=== PATIENT | female | born 1955 | race Caucasian/White ===

== ENCOUNTER 2018-10-05 08:51 | Observation (INO) ==
[2018-10-05] MEDS ORDERED: DEXAMETHASONE **PF** INJ 10 MG/ML VIAL IV ONE (09:14)
[2018-10-05] MEDS ORDERED: MoRPHine SULFATE 10 MG/ML CARP/VIAL IV STA (09:14)
[2018-10-05] MEDS ORDERED: ONDANSETRON INJ 2 MG/ML 2 ML VIAL IV STA ×2 (09:14→11:15)
[2018-10-05] MEDS ORDERED: HYDROmorphone INJ 1 MG/ML SYRINGE IV STA (10:32)
--- NOTE | 2018-10-05 11:15 | Emergency Department Note ---
History of Present Illness General Chief complaint: Neuro Symptoms/Deficit Stated complaint: NEUROPATHY, NECK PAIN Time Seen by Provider: 10/05/18 08:59 History of Present Illness Maximum Pain Intensity: 10 This 63-year-old female presents to the ER with chief complaint of worsening neuropathy of her arms and legs. Patient states that she had a steroid injection of Kenalog into her cervical spine 1 year ago and since that time has had peripheral neuropathy. The patient has been seen at multiple facilities for her neuropathy. She started a Dr. Jackson and then went to [facility], [place] and [place]. She has been placed on multiple medications for the neuropathy. The patient is currently on gabapentin 1200 mg daily oxcarbazine and oxycodone although she has not taken any oxycodone today. She did take one oxycodone yesterday. The patient is currently followed by Dr. Altamirano, [facility] who prescribes her oxycodone and goes to [facility] for trigger point dry needling. The patient is here mainly for pain control. The patient has had imaging done of both her cervical spine and lumbar spine within the last year. Home Medications Home Medications Medication Instructions Recorded Confirmed Type cetirizine [Zyrtec] 10 mg PO QAM 11/24/17 10/05/18 History bisacodyl 5 mg tablet 10 mg PO PM tab 06/13/18 10/05/18 History cyclobenzaprine 10 mg tablet 10 mg PO DIRECTED PRN 06/13/18 10/05/18 History docusate sodium 100 mg capsule 200 mg PO PM cap 06/13/18 10/05/18 History meloxicam 15 mg tablet 15 mg PO PM 06/13/18 10/05/18 History metoprolol succinate ER 50 mg 25 mg PO PM 06/13/18 10/05/18 History tablet,extended release 24 hr oxycodone 5 mg capsule 5 mg PO BID PRN cap 06/13/18 10/05/18 History zolpidem 5 mg tablet 5 mg PO HS PRN tab 06/13/18 10/05/18 History cholecalciferol (vitamin D3) 2,000 unit PO QAM 10/05/18 10/05/18 History [Vitamin D3] gabapentin 300 mg PO QID 10/05/18 10/05/18 History hydrochlorothiazide 12.5 mg PO DIRECTED PRN 10/05/18 10/05/18 History lorazepam 0.5 mg PO TID PRN 10/05/18 10/05/18 History oxcarbazepine 150 mg PO QAM 10/05/18 10/05/18 History tramadol 50 mg PO DIRECTED PRN 10/05/18 10/05/18 History Allergies Allergy/AdvReac Type Severity Reaction Status Date / Time cephalexin Allergy Mild hives Verified 10/05/18 09:20 Penicillins Allergy Unknown Verified 10/05/18 09:20 Sulfa (Sulfonamide Allergy Unknown Verified 10/05/18 09:20 Antibiotics) sulfamethoxazole Allergy Unknown Verified 10/05/18 09:20 Past Med/Surg History Medical History Cervical radiculitis Cervicalgia GERD (gastroesophageal reflux disease) Lumbago Peripheral neuropathy Surgical History H/O: hysterectomy S/P shoulder surgery S/P tonsillectomy and adenoidectomy Social History Feels Safe at Home: Yes Smoking Status: Never smoker Review of Systems A total of 6 systems reviewed and were otherwise negative Physical Exam Vital Signs Vital Signs - 24 hr 10/05/18 08:54 10/05/18 10:51 Temperature 36.8 C Temperature Source Oral Sepsis Recent Fever Within 48 Hours No Sepsis New/Unexplained Change in Mental Status No Sepsis Action Taken by Nursing No Action Required Pulse Rate 87 Pulse Rate [Finger] 72 Pulse Rhythm [Finger] Regular Pulse Strength [Finger] Normal Respiratory Rate 20 16 Respiratory Effort / Characteristics Non-Labored Spontaneous Respiratory Depth Normal Respiratory Pattern Regular Blood Pressure 112/76 Blood Pressure [Right Arm] 119/98 Blood Pressure Mean 88 Blood Pressure Mean [Right Arm] 105 Blood Pressure Position [Right Arm] Lying Pulse Oximetry 100 99 Oxygen Delivery Method Room Air Room Air GENERAL: 63-year-old female appears uncomfortable secondary to pain. MENTAL Status: Alert and oriented x3. NECK: Supple, no lymphadenopathy noted LUNGS: Clear to auscultation without wheezes rales or rhonchi. CARDIAC: Regular rate and rhythm without murmur. CERVICAL SPINE: Patient is tender to palpation over the spinous processes in the paravertebral regions bilaterally. The patient has full range of motion of the cervical spine. Perforator Loader strength is 5 out of 5 and symmetrical. LUMBAR SPINE: No gross bony deformity noted. No erythema or edema noted. The patient is nontender to palpation over the spinous processes in the paravert ebral region. Full range of motion. Bilateral patellar and Achilles reflexes are 2+. LOWER EXTREMITIES: No cyanosis or edema noted. Course Administered Medications Discontinued Medications Dexamethasone Sodium Phosphate (Decadron Pf) 10 mg IV NOW ONE Stop: 10/05/18 09:15 Last Admin: 10/05/18 09:39 Dose: 10 mg Documented by: [id number] Hydromorphone HCl (Dilaudid) 1 mg IV NOW STA Stop: 10/05/18 10:33 Last Admin: 10/05/18 11:10 Dose: 1 mg Documented by: [id number] Morphine Sulfate (Morphine Sulfate) 6 mg IV NOW STA Stop: 10/05/18 09:15 Last Admin: 10/05/18 09:39 Dose: 6 mg Documented by: [id number] Ondansetron HCl (Zofran) 4 mg IV NOW STA Stop: 10/05/18 09:15 Last Admin: 10/05/18 09:39 Dose: 4 mg Documented by: [id number] Ondansetron HCl (Zofran) 4 mg IV NOW STA Stop: 10/05/18 11:16 Last Admin: 10/05/18 11:19 Dose: 4 mg Documented by: [id number] Medical Decision Making Differential Diagnosis Peripheral neuropathy Medical Records Attestation: I reviewed the patient's medical records. Home Medications Current Medication List: was personally reviewed by me Blood Pressure Blood Pressure Findings: Normal blood pressure MDM Narrative The patient was evaluated. I do not feel that the patient needs any imaging studies performed. She has seen all specialist for her problems. She is mainly here for pain control therefore IV access was obtained and she was given morphine 6 mg IV and Zofran 4 mg IV push for associated nausea. The patient was reevaluated and was still in pain therefore she was given Dilaudid 1 mg IV and Zofran 4 mg IV push for associated nausea. The patient was reevaluated once again and was still stating she did not get any pain relief. Patient's case was discussed with Dr. Longoria who agree with treatment plan. [facility] for [facility]. Impression & Plan Neuropathy, Intractable pain Discharge Plan Visit Data Chief Complaint: Neuro Symptoms/Deficit Stated Complaint: NEUROPATHY, NECK PAIN ED Provider: Hayden Longoria ED Midlevel Provider: Cassandra Ray Discharge Problem: Neuropathy, Intractable pain Patient Disposition: Being Evaluated by Hospitalist Condition: Good Forms Stand Alone Forms: My [facility] Prescriptions Prescriptions: No Action metoprolol succinate [Toprol XL] 50 mg tablet extended release 24 hr 25 mg PO PM RF: 0 oxycodone 5 mg capsule 5 mg PO BID PRN (Reason: Pain) RF: 0 zolpidem [Ambien] 5 mg tablet 5 mg PO HS PRN (Reason: Sleep) RF: 0 meloxicam 15 mg tablet 15 mg PO PM RF: 0 docusate sodium [Colace] 100 mg capsule 200 mg PO PM RF: 0 Correctol 5 mg tablet 10 mg PO PM RF: 0 cetirizine [Zyrtec] 10 mg Tablet 10 mg PO QAM RF: 0 cyclobenzaprine 10 mg tablet 10 mg PO DIRECTED PRN (Reason: flex) RF: 0 oxcarbazepine 150 mg tablet 150 mg PO QAM RF: 0 tramadol 50 mg tablet 50 mg PO DIRECTED PRN (Reason: Pain) RF: 0 lorazepam 0.5 mg tablet 0.5 mg PO TID PRN (Reason: Anxiety) RF: 0 hydrochlorothiazide 12.5 mg capsule 12.5 mg PO DIRECTED PRN (Reason: swelling) RF: 0 gabapentin 300 mg capsule 300 mg PO QID RF: 0 cholecalciferol (vitamin D3) [Vitamin D3] 2,000 unit Tablet 2,000 unit PO QAM RF: 0 Referrals Referrals: Saroj Rai DO [Primary Care Provider] -
--- NOTE | 2018-10-05 14:20 | History & Physical Report ---
Date of Service October 05, 2018 Assessment & Plan (1) Intractable pain: (2) Neuropathy: (3) Chronic pain: Pt with hx chronic neck and back pain for greater than 20 years with hx pain and paresthesias to bilateral upper and lower extremities x 1 year presented to ER with c/o increased pain. Pt reports gradual worsening of symptoms over past several months and reports increased worsening today. Denies taking her home pain medications today prior to arrival. She has had extensive workup and multiple evaluations with neurologists in [facility], [facility] and [facility]. Pt started on Trileptal on 09/13/18 by [facility]. Diagnosed with small fiber neuropathy H/O MRI C-SPINE 06/30:C ervical degenerative changes are similar in distribution to the prior study, again appearing most pronounced at C4-5 through C6-7, where there is mild spinal canal stenosis and varying degrees of [id number] foraminal narrowing MRI L SPINE 09/18/18:Mild degenerative changes at L4-5 and L5-S1 with mild narrowing of each lateral recess at L5-S1 and mild bilateral facet arthropathy at these levels. No evidence for any canal narrowing or foraminal narrowing. Severe disc disease at L4-5. MRI THORACIC SPINE on 09/18/18: Mild degenerative changes at L4-5 and L5-S1 with mild narrowing of each lateral recess at L5-S1 and mild bilateral facet arthropathy at these levels. No evidence for any canal narrowing or foraminal narrowing. Severe disc disease at L4-5. -In ER was given Morphine 6mg IV, Dilaudid 1mg IV, Zofran, Decadron 10mg IV with reported slightly decreased pain to hands but continued pain to BLE -Admitted for pain control -Continue Gabapentin, Trileptal, Mobic -Oxycodone, Morphine prn pain -PT/OT eval -Pain management consult -Continue outpatient neurology consult, consider neurology consult inpatient if worsening (4) Anxiety and depression: (5) Insomnia: Pt recently prescribed effexor however pt did not start -Hold ativan currently with pain medication use -Need to caution ambien use with other pain medication use (6) Palpitations: Reported chronic intermittent palpitations Denies any currently -Continue metoprolol DVT Prophylaxis -SCDs Follows with Dr Saroj Rai for routine care Pt was seen and care coordinated with Dr Rodrigues. See addendum History of Present Illness Chief Complaint: Pain Primary Care Provider: Saroj Rai DO Pt is 63 y/o F with PMH anxiety, depression, insomnia, palpitations, chronic pain, small fiber neuropathy presented to ER with complaint of increased pain. Patient with history of chronic neck and back pain for over 20 years. She reports history of injection to cervical spine 09/2017 and patient reports that since has had pain and numbness burning sensation, initially to bilateral hands and feet which has progressed to entire bilateral upper extremities and lower extremities and numbness of tongue and lips. Patient has been seen by multiple specialists at [facility], [facility], [facility] and most recently [facility] on 09/13/2018 who started patient on Trileptal and did not believe that there is a correlation between the cervical spine injection and patient's current symptoms per outpatient note. She has followed up with pain management and reports is currently following up at [facility] in [place]. Following up with physical therapy also has received acupuncture without relief. Has been on multiple medications. Stopped Elavil on 09/23/18 secondary to dry mouth and didn't feel it was effective. PCP suggested starting Effexor for moods on 09/25/18 however pt did not start. She reports alternating Tramadol and oxycodone daily for pain with limited relief. Patient has had extensive work-up including labs, MRI cervical & lumbar spine, nerve conduction studies and skin biopsies. Biopsy findings were consistent with small fiber neuropathy. Followed up with Dr. 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 Patient reports over the last several months has had increasing pain and describes it from her head to her feet excluding her chest and abdomen. Describes sensation as burning type shocks and reports intermittent left arm weakness and dropping objects. Patient states he has had a couple of falls last being 1 week ago. Pt reports intermittent palpitations and is on metoprolol with some improvement. Also reports intermittent tinnitus and dizziness that she does not feel has worsened. Reports hx stress and increased with her mother passing away recently. reports bilateral feet edema after standing all day and has HCTZ to use as needed, however states hasn't used for awhile secondary to no significant edema. Denies fever/chills, diaphoresis, N/V/D/C, GIVENS, syncope, vision changes, CP, SOB, orthopnea, cough, sore throat, choking, otalgia, rhinorrhea, abdominal pain, rashes, urinary symptoms. Hx MRI C-SPINE 06/30: IMPRESSION Cervical degenerative changes are similar in distribution to the prior study, again appearing most pronounced at C4-5 through C6-7, where there is mild spinal canal stenosis and varying degrees of [id number] foraminal narrowing, as detailed. MRI L SPINE 09/18/18: IMPRESSION 1. Mild degenerative changes at L4-5 and L5-S1 with mild narrowing of each lateral recess at L5-S1 and mild bilateral facet arthropathy at these levels. No evidence for any canal narrowing or foraminal narrowing. 2. Severe disc disease at L4-5. 09/18/18 MRI THORACIC SPINE: IMPRESSION 1. Mild degenerative changes at L4-5 and L5-S1 with mild narrowing of each lateral recess at L5-S1 and mild bilateral facet arthropathy at these levels. No evidence for any canal narrowing or foraminal narrowing. 2. Severe disc disease at L4-5. Today In ER pt given Morphine, Dilaudid, Zofran, Decadron and admitted secondary to intractable pain. Allergies Allergy/AdvReac Type Severity Reaction Status Date / Time cephalexin Allergy Mild hives Verified 10/05/18 09:20 Penicillins Allergy Unknown Verified 10/05/18 09:20 Sulfa (Sulfonamide Allergy Unknown Verified 10/05/18 09:20 Antibiotics) sulfamethoxazole Allergy Unknown Verified 10/05/18 09:20 Home Medications Home Medications Medication Instructions Recorded Confirmed Type cetirizine [Zyrtec] 10 mg PO QAM 11/24/17 10/05/18 History bisacodyl 5 mg tablet 10 mg PO PM PRN tab 06/13/18 10/05/18 History cyclobenzaprine 10 mg tablet 10 mg PO BID PRN 06/13/18 10/05/18 History docusate sodium 100 mg capsule 200 mg PO PM cap 06/13/18 10/05/18 History meloxicam 15 mg tablet 15 mg PO PM 06/13/18 10/05/18 History metoprolol succinate ER 50 mg 25 mg PO PM 06/13/18 10/05/18 History tablet,extended release 24 hr oxycodone 5 mg capsule 5 mg PO BID PRN cap 06/13/18 10/05/18 History zolpidem 5 mg tablet 5 - 10 mg PO HS PRN tab 06/13/18 10/05/18 History cholecalciferol (vitamin D3) 50,000 unit PO UD 10/05/18 10/05/18 History gabapentin 300 mg PO QID 10/05/18 10/05/18 History hydrochlorothiazide 12.5 mg PO DAILY PRN 10/05/18 10/05/18 History lorazepam 0.5 mg PO DAILY PRN 10/05/18 10/05/18 History oxcarbazepine 150 mg PO QAM 10/05/18 10/05/18 History tramadol 50 mg PO DAILY PRN 10/05/18 10/05/18 History Past Med/Surg History Medical History Palpitations (Chronic) Insomnia (Chronic) Anxiety and depression (Chronic) Neuropathy (Chronic) Cervical radiculitis Cervicalgia (Chronic) GERD (gastroesophageal reflux disease) (Chronic) Lumbago (Chronic) Peripheral neuropathy Surgical History H/O wisdom tooth extraction (Chronic) H/O: hysterectomy (Chronic) S/P shoulder surgery (Chronic) S/P tonsillectomy and adenoidectomy (Chronic) Family History Father Bladder cancer Stroke Brother Coronary heart disease Mother Stroke Other Hypertension Social History Preferred Language: Polish Communication Ability: Effective Subsorter Required: No Beliefs That Will Affect Care: Restoration Restoration Beliefs: Religious Current Living Situation: Spouse Other Information That Helps Us Care for You: No Feels Safe at Home: Yes Safety Concerns: Feels Safe At This Time Smoking Status: Never smoker Do You Dip or Chew Tobacco: No Hx Alcohol Use: No Hx Substance Use: No Review of Systems Review of Systems: All systems reviewed & are unremarkable except as noted in HPI & below Physical Exam Physical Exam: General: no acute distress, lying in bed, WDWN Head: normocephalic, atraumatic Eyes: PERRL, EOM's intact, conjunctiva non-injected, anicteric ENT: normal inspection external ears, nose, mucous membranes moist Neck: supple, trachea midline, non-tender, ROM intact Lungs: clear, no respiratory distress, no wheezing/rhonchi/rales CV: RRR, no murmur, no pretibial edema Abd: normal BS, soft, non-tender Ext: no cyanosis, no calf tenderness, strength BUE and BLE 5/5 intact, sensation to light touch intact, brisk capillary refill, distal pulses intact Neuro: A&O x 3, CN II-XII grossly intact, no focal deficits noted, normal affect Skin: warm, dry Results & Data Vital Signs (Past 12 Hours) Vital Signs Temp Pulse Pulse Resp BP BP Pulse Ox 10/05/18 13:21 90 17 104/77 99 10/05/18 10:51 72 16 119/98 99 10/05/18 08:54 36.8 C 87 20 112/76 100 Laboratory Results Short CBC 10/05/18 Range/Units 14:50 WBC 6.64 (4.8-10.8) K/uL Hgb 12.5 (12.0-16.0) g/dL Hct 37.8 (37-47) % Plt Count 186 (130-400) K/uL BMP 10/05/18 14:50 Sodium 142 Potassium 3.8 Chloride 106 Carbon Dioxide 29 BUN 19 H Creatinine 0.93 Glucose 134 H Calcium 9.5 Liver Function 10/05/18 Range/Units 14:50 Total Bilirubin 0.2 (0.2-1) mg/dl AST 26 (15-37) U/L ALT 28 (12-78) U/L Alkaline Phosphatase 121 H (45-117) U/L Albumin 3.9 (3.4-5.0) gm/dl Supervising Physician Co-Signing Physician Notes I saw this patient with the physician export sales assistant, I participated in the history, physical, review of systems, and physical exam. I reviewed the medications with the patient and the physician export sales assistant and helped reconcile the medications. I helped take a detailed family and social history as well. I formulated the assessment and plan personally with the physician export sales assistant and went over it with the patient. ROS-No Headache, No Visual Changes, No Nausea, No Vomiting, No Fever, No Chills, No Neck Pain or Stiffness, No Chest Pain, No Palpitations, No SOB, No CASTILLO, No Cough, No Sputum, No Wheezing, No Abdominal Pain, No Diarrhea, No Hematemesis, No Hemoptysis, No Unexpected Weight Loss, No Flank pain, No Melena, No Hematochezia, No Frequency, No Urgency, No Burning, No Hematuria, No Rashes, No Diaphoresis. Appetite is Normal, c/o aupper and lower pain and tingling, Foot pain, Neck pain, upper back and arm pain Physical Exam Gen-AAO x 3, NAD, Afebrile, pleasant Head-NCAT, EOMI, PERRLA, Anicteric Sclera, No Posterior Pharyngeal Erythema Neck-Supple, No JVD, No Thyromegaly, No Masses, No LAD, No Bruits Lungs-Clear to Auscultation Bilaterally, No Rales, No Rhonchi, No Wheezing, No Crepitus Chest-No S4, +S1, +S2, No S3, No Murmurs, No Rubs, No Gallops, No Ectopy Abdomen-Soft, Bowel Sounds Present, Non Tender, Non Distended, No Hepatomegaly, No Splenomegaly, No Palpable Masses, No Rebound, No Rigidity, No Guarding Musculoskeletal-Full Range of Motion Bilaterally, No CVAT Extremities-No Cyanosis, No Clubbing, No Edema Nuero-Cranial Nerves II-XII grossly intact, Motor WNL, DTRs WNL, Strength WNL, Non Focal Psych-Anxious
[2018-10-05] MEDS ORDERED: PROCHLORPERAZINE 10 MG in SYRINGE 8 ML IV ONE (14:28)
[2018-10-05 15:02] LABS: Basophils # (auto) 0.01 K/uL (0-0.2); Basophils % (auto) 0.2 %; Hematocrit (blood only) 37.8 % (37-47); Hemoglobin 12.5 g/dL (12.0-16.0); Immature Granulocytes # (auto) 0.01 K/uL (0.00-0.02); Immature Granulocytes % (auto) 0.2 %; Lymphocytes # (auto) 0.55 K/uL (1.2-3.4); Lymphocytes % (auto) 8.3 %; Mean Corpuscular Hgb Conc 33.1 g/dL (32-36); Mean Corpuscular Volume 91.5 fL (80-100); Mean Platelet Volume 12.5 fL (7.4-10.4); Monocytes # (auto) 0.04 K/uL (0.11-0.59); Monocytes % (auto) 0.6 %; Neutrophils # (auto) 6.03 K/uL (1.4-6.5); Neutrophils % (auto) 90.7 %; Platelet Count 186 K/uL (130-400); RDW Coefficient of Variation 13.2 % (11.5-14.5); RDW Standard Deviation 44.3 fL (36.4-46.3); Red Blood Count 4.13 M/uL (4.2-5.4); White Blood Count 6.64 K/uL (4.8-10.8)
[2018-10-05 15:23] LABS: Albumin Globulin Ratio 1.1 (0.9-2); Albumin Level 3.9 gm/dl (3.4-5.0); BUN Creatinine Ratio 20.4 (10-20); Bilirubin,Total 0.2 mg/dl (0.2-1); Calcium 9.5 mg/dl (8.5-10.1); Creatinine Clr Calc Pharmacy 53.8 ml/min; Est GFR (African American) 76.3; Est GFR (Non-African American) 65.9; Globulin 3.5 gm/dl (2.5-4.0); Potassium 3.8 mmol/L (3.5-5.1); Total Protein 7.4 gm/dl (6.4-8.2)
[2018-10-05] MEDS ORDERED: ZOLPIDEM TARTRATE 5 MG TAB PO PRN (16:12)
[2018-10-05] MEDS ORDERED: CYCLOBENZAPRINE HCL 10 MG TAB PO PRN (16:12)
[2018-10-05] MEDS ORDERED: ACETAMINOPHEN 325 MG TAB PO PRN (16:12)
[2018-10-05] MEDS ORDERED: OXYCODONE HCL IR 5 MG TAB (IMMEDIATE RELEASE) PO PRN (16:12)
[2018-10-05] MEDS ORDERED: ONDANSETRON INJ 2 MG/ML 2 ML VIAL IV PRN (16:12)
[2018-10-05] MEDS ORDERED: MoRPHine SULFATE 4 MG/ML 1 ML CARP\\VIAL IV PRN (16:12)
[2018-10-05] MEDS ORDERED: GABAPENTIN 300 MG CAP PO SCH (17:00)
--- NOTE | 2018-10-05 18:00 | Discharge Summary ---
Date of Service October 05, 2018 Admission HPI Per Admitting Provider Pt is 63 y/o F with PMH anxiety, depression, insomnia, palpitations, chronic pain, small fiber neuropathy presented to ER with complaint of increased pain. Patient with history of chronic neck and back pain for over 20 years. She reports history of injection to cervical spine 09/2017 and patient reports that since has had pain and numbness burning sensation, initially to bilateral hands and feet which has progressed to entire bilateral upper extremities and lower extremities and numbness of tongue and lips. Patient has been seen by multiple specialists at [facility], [facility], [facility] and most recently [facility] on 09/13/2018 who started patient on Trileptal and did not believe that there is a correlation between the cervical spine injection and patient's current symptoms per outpatient note. She has followed up with pain management and reports is currently following up at [facility] in [place]. Following up with physical therapy also has received acupuncture without relief. Has been on multiple medications. Stopped Elavil on 09/23/18 secondary to dry mouth and didn't feel it was effective. PCP suggested starting Effexor for moods on 09/25/18 however pt did not start. She reports alternating Tramadol and oxycodone daily for pain with limited relief. Patient has had extensive work-up including labs, MRI cervical & lumbar spine, nerve conduction studies and skin biopsies. Biopsy findings were consistent with small fiber neuropathy. Followed up with Dr. 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 Patient reports over the last several months has had increasing pain and describes it from her head to her feet excluding her chest and abdomen. Describes sensation as burning type shocks and reports intermittent left arm weakness and dropping objects. Patient states he has had a couple of falls last being 1 week ago. Pt reports intermittent palpitations and is on metoprolol with some improvement. Also reports intermittent tinnitus and dizziness that she does not feel has worsened. Reports hx stress and increased with her mother passing away recently. reports bilateral feet edema after standing all day and has HCTZ to use as needed, however states hasn't used for awhile secondary to no significant edema. Denies fever/chills, diaphoresis, N/V/D/C, GIVENS, syncope, vision changes, CP, SOB, orthopnea, cough, sore throat, choking, otalgia, rhinorrhea, abdominal pain, rashes, urinary symptoms. Hx MRI C-SPINE 06/30: IMPRESSION Cervical degenerative changes are similar in distribution to the prior study, again appearing most pronounced at C4-5 through C6-7, where there is mild spinal canal stenosis and varying degrees of [id number] foraminal narrowing, as detailed. MRI L SPINE 09/18/18: IMPRESSION 1. Mild degenerative changes at L4-5 and L5-S1 with mild narrowing of each lateral recess at L5-S1 and mild bilateral facet arthropathy at these levels. No evidence for any canal narrowing or foraminal narrowing. 2. Severe disc disease at L4-5. 09/18/18 MRI THORACIC SPINE: IMPRESSION 1. Mild degenerative changes at L4-5 and L5-S1 with mild narrowing of each lateral recess at L5-S1 and mild bilateral facet arthropathy at these levels. No evidence for any canal narrowing or foraminal narrowing. 2. Severe disc disease at L4-5. Today In ER pt given Morphine, Dilaudid, Zofran, Decadron and admitted secondary to intractable pain. Admission Exam Per Admitting Provider Physical Exam Gen-AAO x 3, NAD, Afebrile Head-NCAT, EOMI, PERRLA, Anicteric Sclera, No Posterior Pharyngeal Erythema Neck-Supple, No JVD, No Thyromegaly, No Masses, No LAD, No Bruits Lungs-Clear to Auscultation Bilaterally, No Rales, No Rhonchi, No Wheezing, No Crepitus Chest-No S4, +S1, +S2, No S3, No Murmurs, No Rubs, No Gallops, No Ectopy Abdomen-Soft, Bowel Sounds Present, Non Tender, Non Distended, No Hepatomegaly, No Splenomegaly, No Palpable Masses, No Rebound, No Rigidity, No Guarding Musculoskeletal-Full Range of Motion Bilaterally, No CVAT Extremities-No Cyanosis, No Clubbing, No Edema Nuero-Cranial Nerves II-XII grossly intact, Motor WNL, DTRs WNL, Strength WNL, Non Focal Psych-Normal Mood Principal Diagnosis Neuropathic pain Discharge Exam Physical Exam Gen-AAO x 3, NAD, Afebrile Head-NCAT, EOMI, PERRLA, Anicteric Sclera, No Posterior Pharyngeal Erythema Neck-Supple, No JVD, No Thyromegaly, No Masses, No LAD, No Bruits Lungs-Clear to Auscultation Bilaterally, No Rales, No Rhonchi, No Wheezing, No Crepitus Chest-No S4, +S1, +S2, No S3, No Murmurs, No Rubs, No Gallops, No Ectopy Abdomen-Soft, Bowel Sounds Present, Non Tender, Non Distended, No Hepatomegaly, No Splenomegaly, No Palpable Masses, No Rebound, No Rigidity, No Guarding Musculoskeletal-Full Range of Motion Bilaterally, No CVAT Extremities-No Cyanosis, No Clubbing, No Edema Nuero-Cranial Nerves II-XII grossly intact, Motor WNL, DTRs WNL, Strength WNL, Non Focal Psych-Normal Mood Discharge Data Allergies Allergy/AdvReac Type Severity Reaction Status Date / Time cephalexin Allergy Mild hives Verified 10/05/18 09:20 Penicillins Allergy Unknown Verified 10/05/18 09:20 Sulfa (Sulfonamide Allergy Unknown Verified 10/05/18 09:20 Antibiotics) sulfamethoxazole Allergy Unknown Verified 10/05/18 09:20 Consultations 10/05/18 12:51 ED Decision to Admit Stat 10/05/18 16:12 Consult Case Management - Discharge Planning Routine Consult Pain Management Routine Current Diagnoses Major depressive disorder, single episode, unspecified (10/05/18) Anxiety disorder, unspecified (10/05/18) Insomnia, unspecified (10/05/18) Polyneuropathy, unspecified (10/05/18) Other chronic pain (10/05/18) Palpitations (10/05/18) Pain, unspecified (10/05/18) Allergies cephalexin Allergy (Mild, Verified 10/05/18 09:20) hives Penicillins Allergy (Unknown, Verified 10/05/18 09:20) Sulfa (Sulfonamide Antibiotics) Allergy (Unknown, Verified 10/05/18 09:20) sulfamethoxazole Allergy (Unknown, Verified 10/05/18 09:20) Height/Weight/Isolation Height 5 ft 1 in Weight 64.1 kg Chemistry 10/05/18 14:50 Sodium 142 Potassium 3.8 Chloride 106 Carbon Dioxide 29 Anion Gap 7.0 BUN 19 H Creatinine 0.93 Glucose 134 H Hospital Course (1) Intractable pain: (2) Neuropathy: (3) Chronic pain: Pt with hx chronic neck and back pain for greater than 20 years with hx pain and paresthesias to bilateral upper and lower extremities x 1 year presented to ER with c/o increased pain. Pt reports gradual worsening of symptoms over past several months and reports increased worsening today. Denies taking her home pain medications today prior to arrival. She has had extensive workup and multiple evaluations with neurologists in [facility], [facility] and [facility]. Pt started on Trileptal on 09/13/18 by [facility]. Diagnosed with small fiber neuropathy H/O MRI C-SPINE 06/30:C ervical degenerative changes are similar in distribution to the prior study, again appearing most pronounced at C4-5 through C6-7, where there is mild spinal canal stenosis and varying degrees of [id number] foraminal narrowing MRI L SPINE 09/18/18:Mild degenerative changes at L4-5 and L5-S1 with mild narrowing of each lateral recess at L5-S1 and mild bilateral facet arthropathy at these levels. No evidence for any canal narrowing or foraminal narrowing. Severe disc disease at L4-5. MRI THORACIC SPINE on 09/18/18: Mild degenerative changes at L4-5 and L5-S1 with mild narrowing of each lateral recess at L5-S1 and mild bilateral facet arthropathy at these levels. No evidence for any canal narrowing or foraminal narrowing. Severe disc disease at L4-5. -In ER was given Morphine 6mg IV, Dilaudid 1mg IV, Zofran, Decadron 10mg IV with reported slightly decreased pain to hands but continued pain to BLE -Admitted for pain control -Continue Gabapentin, Trileptal, Mobic -Oxycodone, Morphine prn pain -PT/OT eval -Pain management consult -Continue outpatient neurology consult, consider neurology consult inpatient if worsening (4) Anxiety and depression: (5) Insomnia: Pt recently prescribed effexor however pt did not start -Hold ativan currently with pain medication use -Need to caution ambien use with other pain medication use (6) Palpitations: Reported chronic intermittent palpitations Denies any currently -Continue metoprolol DVT Prophylaxis -SCDs Follows with Dr Saroj Rai for routine care Pt was seen and care coordinated with Dr Rodrigues. See addendum Total Time Total Time Spent Total Time Spent (In Minutes): 36 mins Total Time Includes: Examination of the Patient, Discharge Planning, Medication Reconciliation and Communication With Other Providers Discharge Plan Discharge Items Patient Disposition: Home - Self-Care Reason For Visit: INTRACTABLE PAIN Discharge Diagnosis: Neuropathy, Pain Condition: Good Discharge Goals: Decrease discomfort and Improve function Activity: Resume your previous activity Activity Comment: As tolerated Non-emergency contact: Primary Care Provider Call non-emergency contact if: your symptoms worsen and you have a fever Follow-up/Referrals: Saroj Rai DO [Primary Care Provider] - Diet: Regular Addtl Provider Instructions: Follow up with pain management, Follow up with PCP Can resume home medications Prescriptions: Continued metoprolol succinate [Toprol XL] 50 mg tablet extended release 24 hr 25 mg PO PM RF: 0 oxycodone 5 mg capsule 5 mg PO BID PRN (Reason: Pain) RF: 0 zolpidem [Ambien] 5 mg tablet 5 - 10 mg PO HS PRN (Reason: Insomnia) RF: 0 meloxicam 15 mg tablet 15 mg PO PM RF: 0 docusate sodium [Colace] 100 mg capsule 200 mg PO PM RF: 0 Correctol 5 mg tablet 10 mg PO PM PRN (Reason: Constipation) RF: 0 cetirizine [Zyrtec] 10 mg Tablet 10 mg PO QAM RF: 0 cyclobenzaprine 10 mg tablet 10 mg PO BID PRN (Reason: Muscle Spasm) RF: 0 oxcarbazepine 150 mg tablet 150 mg PO QAM RF: 0 tramadol 50 mg tablet 50 mg PO DAILY PRN (Reason: Pain) RF: 0 lorazepam 0.5 mg tablet 0.5 mg PO DAILY PRN (Reason: Anxiety) RF: 0 hydrochlorothiazide 12.5 mg capsule 12.5 mg PO DAILY PRN (Reason: swelling) RF: 0 gabapentin 300 mg capsule 300 mg PO QID RF: 0 cholecalciferol (vitamin D3) 50,000 unit Capsule 50,000 unit PO UD RF: 0 Stand-Alone Forms: [facility] Discharge Orders: Discharge Order (Routine); Ordered 10/05/18 Ordered By: Sapna Chavez Admission Data Admit Date/Time: 10/05/18 14:15 Attending Provider: Karina Abdi Admit Provider: Henry Rodrigues Primary Care Provider: Saroj Rai Other Providers: Henry Rodrigues ; Petar Cha Service: Telemetry Medical Other Pending Studies at Discharge: No
--- NOTE | 2018-10-05 18:00 | Discharge Summary ---
Date of Service October 05, 2018 Admission HPI Per Admitting Provider Pt is 63 y/o F with PMH anxiety, depression, insomnia, palpitations, chronic pain, small fiber neuropathy presented to ER with complaint of increased pain. Patient with history of chronic neck and back pain for over 20 years. She reports history of injection to cervical spine 09/2017 and patient reports that since has had pain and numbness burning sensation, initially to bilateral hands and feet which has progressed to entire bilateral upper extremities and lower extremities and numbness of tongue and lips. Patient has been seen by multiple specialists at [facility], [facility], [facility] and most recently [facility] on 09/13/2018 who started patient on Trileptal and did not believe that there is a correlation between the cervical spine injection and patient's current symptoms per outpatient note. She has followed up with pain management and reports is currently following up at [facility] in [place]. Following up with physical therapy also has received acupuncture without relief. Has been on multiple medications. Stopped Elavil on 09/23/18 secondary to dry mouth and didn't feel it was effective. PCP suggested starting Effexor for moods on 09/25/18 however pt did not start. She reports alternating Tramadol and oxycodone daily for pain with limited relief. Patient has had extensive work-up including labs, MRI cervical & lumbar spine, nerve conduction studies and skin biopsies. Biopsy findings were consistent with small fiber neuropathy. Followed up with Dr. 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 Patient reports over the last several months has had increasing pain and describes it from her head to her feet excluding her chest and abdomen. Describes sensation as burning type shocks and reports intermittent left arm weakness and dropping objects. Patient states he has had a couple of falls last being 1 week ago. Pt reports intermittent palpitations and is on metoprolol with some improvement. Also reports intermittent tinnitus and dizziness that she does not feel has worsened. Reports hx stress and increased with her mother passing away recently. reports bilateral feet edema after standing all day and has HCTZ to use as needed, however states hasn't used for awhile secondary to no significant edema. Denies fever/chills, diaphoresis, N/V/D/C, GIVENS, syncope, vision changes, CP, SOB, orthopnea, cough, sore throat, choking, otalgia, rhinorrhea, abdominal pain, rashes, urinary symptoms. Hx MRI C-SPINE 06/30: IMPRESSION Cervical degenerative changes are similar in distribution to the prior study, again appearing most pronounced at C4-5 through C6-7, where there is mild spinal canal stenosis and varying degrees of [id number] foraminal narrowing, as detailed. MRI L SPINE 09/18/18: IMPRESSION 1. Mild degenerative changes at L4-5 and L5-S1 with mild narrowing of each lateral recess at L5-S1 and mild bilateral facet arthropathy at these levels. No evidence for any canal narrowing or foraminal narrowing. 2. Severe disc disease at L4-5. 09/18/18 MRI THORACIC SPINE: IMPRESSION 1. Mild degenerative changes at L4-5 and L5-S1 with mild narrowing of each lateral recess at L5-S1 and mild bilateral facet arthropathy at these levels. No evidence for any canal narrowing or foraminal narrowing. 2. Severe disc disease at L4-5. Today In ER pt given Morphine, Dilaudid, Zofran, Decadron and admitted secondary to intractable pain. Admission Exam Per Admitting Provider General: no acute distress, lying in bed, WDWN Head: normocephalic, atraumatic Eyes: PERRL, EOM's intact, conjunctiva non-injected, anicteric ENT: normal inspection external ears, nose, mucous membranes moist Neck: supple, trachea midline, non-tender, ROM intact Lungs: clear, no respiratory distress, no wheezing/rhonchi/rales CV: RRR, no murmur, no pretibial edema Abd: normal BS, soft, non-tender Ext: no cyanosis, no calf tenderness, strength BUE and BLE 5/5 intact, sensation to light touch intact, brisk capillary refill, distal pulses intact Neuro: A&O x 3, CN II-XII grossly intact, no focal deficits noted, normal affect Skin: warm, dry Principal Diagnosis Intractable pain, neuropathy Discharge Exam General: no acute distress, lying in bed, WDWN Head: normocephalic, atraumatic Eyes: PERRL, EOM's intact, conjunctiva non-injected, anicteric ENT: normal inspection external ears, nose, mucous membranes moist Neck: supple, trachea midline, non-tender, ROM intact Lungs: clear, no respiratory distress, no wheezing/rhonchi/rales CV: RRR, no murmur, no pretibial edema Abd: normal BS, soft, non-tender Ext: no cyanosis, no calf tenderness, strength BUE and BLE 5/5 intact, sensation to light touch intact, brisk capillary refill, distal pulses intact Neuro: A&O x 3, CN II-XII grossly intact, no focal deficits noted, normal affect Skin: warm, dry Discharge Data Allergies Allergy/AdvReac Type Severity Reaction Status Date / Time cephalexin Allergy Mild hives Verified 10/05/18 09:20 Penicillins Allergy Unknown Verified 10/05/18 09:20 Sulfa (Sulfonamide Allergy Unknown Verified 10/05/18 09:20 Antibiotics) sulfamethoxazole Allergy Unknown Verified 10/05/18 09:20 Ordered Studies Short CBC 10/05/18 Range/Units 14:50 WBC 6.64 (4.8-10.8) K/uL Hgb 12.5 (12.0-16.0) g/dL Hct 37.8 (37-47) % Plt Count 186 (130-400) K/uL BMP 10/05/18 14:50 Sodium 142 Potassium 3.8 Chloride 106 Carbon Dioxide 29 BUN 19 H Creatinine 0.93 Glucose 134 H Calcium 9.5 Liver Function 10/05/18 Range/Units 14:50 Total Bilirubin 0.2 (0.2-1) mg/dl AST 26 (15-37) U/L ALT 28 (12-78) U/L Alkaline Phosphatase 121 H (45-117) U/L Albumin 3.9 (3.4-5.0) gm/dl Hospital Course (1) Intractable pain: (2) Neuropathy: (3) Chronic pain: Pt with hx chronic neck and back pain for greater than 20 years with hx pain and paresthesias to bilateral upper and lower extremities x 1 year presented to ER with c/o increased pain. Pt reports gradual worsening of symptoms over past several months and reports increased worsening today. Has been diagnosed with small fiber neuropathy. In ER was given Morphine 6mg IV, Dilaudid 1mg IV, Zofran, Decadron 10mg IV with reported slightly decreased pain to hands but continued pain to BLE. Was admitted for pain control with oxycodone and morphine ordered, however pt denied pain medications on the medical floor and wanted to go home. Alternative pain medications were offered however pt wishes to be discharged home. Pt continues to have stable vital signs and no significant physical exam findings on reassessment. Pt discharged home prior to PT/OT evaluation and pain management consultation. Pt can continue to use her home Gabapentin, Trileptal, Mobic, oxycodone. She is to follow up with her specialists, pain management, PT and PCP. (4) Anxiety and depression: (5) Insomnia: (6) Palpitations: Total Time Total Time Spent Total Time Spent (In Minutes): 20 minutes Discharge Plan Discharge Items Patient Disposition: Home - Self-Care Reason For Visit: INTRACTABLE PAIN Discharge Diagnosis: Neuropathy, Pain Condition: Good Discharge Goals: Decrease discomfort and Improve function Activity: Resume your previous activity Activity Comment: As tolerated Non-emergency contact: Primary Care Provider Call non-emergency contact if: your symptoms worsen and you have a fever Follow-up/Referrals: Saroj Rai DO [Primary Care Provider] - Diet: Regular Addtl Provider Instructions: Follow up with pain management, Follow up with PCP Can resume home medications Prescriptions: Continued metoprolol succinate [Toprol XL] 50 mg tablet extended release 24 hr 25 mg PO PM RF: 0 oxycodone 5 mg capsule 5 mg PO BID PRN (Reason: Pain) RF: 0 zolpidem [Ambien] 5 mg tablet 5 - 10 mg PO HS PRN (Reason: Insomnia) RF: 0 meloxicam 15 mg tablet 15 mg PO PM RF: 0 docusate sodium [Colace] 100 mg capsule 200 mg PO PM RF: 0 Correctol 5 mg tablet 10 mg PO PM PRN (Reason: Constipation) RF: 0 cetirizine [Zyrtec] 10 mg Tablet 10 mg PO QAM RF: 0 cyclobenzaprine 10 mg tablet 10 mg PO BID PRN (Reason: Muscle Spasm) RF: 0 oxcarbazepine 150 mg tablet 150 mg PO QAM RF: 0 tramadol 50 mg tablet 50 mg PO DAILY PRN (Reason: Pain) RF: 0 lorazepam 0.5 mg tablet 0.5 mg PO DAILY PRN (Reason: Anxiety) RF: 0 hydrochlorothiazide 12.5 mg capsule 12.5 mg PO DAILY PRN (Reason: swelling) RF: 0 gabapentin 300 mg capsule 300 mg PO QID RF: 0 cholecalciferol (vitamin D3) 50,000 unit Capsule 50,000 unit PO UD RF: 0 Stand-Alone Forms: [facility] Discharge Orders: Discharge Order (Routine); Ordered 10/05/18 Ordered By: Sapna Chavez Admission Data Admit Date/Time: 10/05/18 14:15 Attending Provider: Karina Abdi Admit Provider: Henry Rodrigues Primary Care Provider: Saroj Rai Other Providers: Henry Rodrigues ; Petar Cha Service: Telemetry Medical Other Pending Studies at Discharge: No Supervising Physician Co-Signing Physician Notes I saw this patient with the physician customer support assistant, I participated in the history, physical, review of systems, and physical exam. I reviewed the medications with the patient and the physician customer support assistant and helped reconcile the medications. I helped take a detailed family and social history as well. I formulated the assessment and plan personally with the physician customer support assistant and went over it with the patient. Physical Exam Gen-AAO x 3, NAD, Afebrile Head-NCAT, EOMI, PERRLA, Anicteric Sclera, No Posterior Pharyngeal Erythema Neck-Supple, No JVD, No Thyromegaly, No Masses, No LAD, No Bruits Lungs-Clear to Auscultation Bilaterally, No Rales, No Rhonchi, No Wheezing, No Crepitus Chest-No S4, +S1, +S2, No S3, No Murmurs, No Rubs, No Gallops, No Ectopy Abdomen-Soft, Bowel Sounds Present, Non Tender, Non Distended, No Hepatomegaly, No Splenomegaly, No Palpable Masses, No Rebound, No Rigidity, No Guarding Musculoskeletal-Full Range of Motion Bilaterally, No CVAT Extremities-No Cyanosis, No Clubbing, No Edema Nuero-Cranial Nerves II-XII grossly intact, Motor WNL, DTRs WNL, Strength WNL, Non Focal Psych-Normal Mood
[2018-10-05] MEDS ORDERED: DOCUSATE SODIUM 100 MG CAP PO SCH (21:00)
[2018-10-05] MEDS ORDERED: METOPROLOL SUCC 50MG EXT REL TAB PO SCH (21:00)
[2018-10-05] MEDS ORDERED: METOPROLOL SUCC 25MG EXT REL TAB PO SCH (21:00)
[2018-10-05] MEDS ORDERED: MELOXICAM 7.5 MG TAB PO SCH (21:00)
[2018-10-06] MEDS ORDERED: OXcarbazepine 150 MG TABLET PO SCH (09:00)
[2018-10-06] MEDS ORDERED: CETIRIZINE HCL 10 MG TABLET PO SCH (09:00)
== END 2018-10-05 18:22 | disposition home or self-care (01) ==
LOC: ED 08:51 → 2N 08:51

== ENCOUNTER 2019-11-05 07:56 | Inpatient (IN) ==
--- NOTE | 2019-09-08 22:16 | PAT Medication Instructions ---
Medication Instructions Date of Service September 08, 2019 Home Medications Medication Instructions Recorded cetirizine 10 mg tablet 10 mg PO QAM #30 tab 10/16/18 epinephrine 0.3 mg/0.3 mL 0.3 mg IM Q20M PRN #2 ea 02/05/19 injection, auto-injector immun glob G(IgG)-pro-IgA 0-50 8 g SUBCUT WK #200 ml 09/04/19 bisacodyl 5 mg tablet 10 mg PO PM PRN docusate sodium 100 mg capsule 200 mg PO PM meloxicam 15 mg tablet 15 mg PO PM metoprolol succinate 50 mg tablet,extended release 24 hr 50 mg PO QAM zolpidem 5 mg tablet 10 mg PO HS cholecalciferol (vitamin D3) 50,000 unit PO 2XWK hydrochlorothiazide 25 mg PO QAM cetirizine 10 mg tablet 10 mg PO QAM aspirin 81 mg chewable tablet 81 mg PO PM lidocaine 5 % topical ointment 1 applic TOPICAL UD PRN epinephrine 0.3 mg/0.3 mL injection, auto-injector 0.3 mg IM Q20M PRN venlafaxine 75 mg capsule,extended release 24 hr 150 mg PO HS Lactobacillus acidophilus [Probiotic Acidophilus] 1,000 mmu cells PO QAM Palmitoylethanolamide 400 mg PO TID Serraptase 40,000 unit PO PM acetaminophen [Tylenol 8 Hour] 1,300 mg PO QAM alpha lipoic acid 200 mg PO QAM [id number] 500 cap PO QAM magnesium 400 mg PO BID pregabalin [Lyrica] 100 mg PO BID immun glob G(IgG)-pro-IgA 0-50 8 g SUBCUT WK Continue as directed epinephrine 0.3 mg/0.3 mL injection, auto-injector 0.3 mg IM Q20M PRN (if needed) ASK your surgeon for instructions meloxicam 15 mg tablet 15 mg PO PM ASK your prescriber and surgeon aspirin 81 mg chewable tablet 81 mg PO PM immun glob G(IgG)-pro-IgA 0-50 8 g SUBCUT WK STOP taking 2 weeks before surgery (or as soon as possible if surgery is within 2 weeks) Palmitoylethanolamide 400 mg PO TID Serraptase 40,000 unit PO PM alpha lipoic acid 200 mg PO QAM [id number] 500 cap PO QAM STOP taking 24 hours before surgery lidocaine 5 % topical ointment 1 applic TOPICAL UD PRN DO NOT take the morning of surgery cholecalciferol (vitamin D3) 50,000 unit PO 2XWK hydrochlorothiazide 25 mg PO QAM cetirizine 10 mg tablet 10 mg PO QAM Lactobacillus acidophilus [Probiotic Acidophilus] 1,000 mmu cells PO QAM magnesium 400 mg PO BID Take morning of surgery With a small sip of water, OTHERWISE NOTHING TO EAT OR DRINK AFTER MIDNIGHT: metoprolol succinate 50 mg tablet,extended release 24 hr 50 mg PO QAM acetaminophen [Tylenol 8 Hour] 1,300 mg PO QAM (okay to take up to 4 hours prior to surgery if needed) pregabalin [Lyrica] 100 mg PO BID Take evening before surgery bisacodyl 5 mg tablet 10 mg PO PM PRN (if needed) docusate sodium 100 mg capsule 200 mg PO PM zolpidem 5 mg tablet 10 mg PO HS venlafaxine 75 mg capsule,extended release 24 hr 150 mg PO HS magnesium 400 mg PO BID pregabalin [Lyrica] 100 mg PO BID Other Notes If you have any questions please call us at [phone] or [phone] or [phone] or [phone]
--- NOTE | 2019-09-11 09:47 | Anesthesiology Consultation ---
Date of Service September 11, 2019 Assessment & Plan (1) Encounter for pre-operative examination: - Hx small fiber neuropathy. Patient very concerned regarding upcoming surgery and neuropathy hx/post-op pain management. Patient requesting we reach out to neurology to see if they have any recommendations. Awaiting neurology perioperative recommendations ([facility] neurology). Per PAT assessment on 09/10: Travel screen negative. No known COVID-19 positive contacts. No current COVID-19 related symptoms. No hx of COVID-19 testing in past 30 days. History Surgery Operation Date: 09/24/19 09:05 Proposed Procedures p C6-C7 Anterior Cervical Discectomy and Fusion, C4-C7 Fusion, C5 Corpectomy, Spinal Cord Monitoring - Toby Russell, Height/Weight Height: 5 ft 1 in Weight: 67.2 kg Allergies Allergy/AdvReac Type Severity Reaction Status Date / Time cephalexin Allergy Mild hives Verified 08/31/19 07:54 levofloxacin [From Levaquin] Allergy Mild Unknown Verified 08/31/19 07:54 Sulfa (Sulfonamide Allergy Mild Unknown Verified 08/31/19 07:54 Antibiotics) sulfamethoxazole Allergy Mild Unknown Verified 08/31/19 07:54 triamcinolone [From Kenalog] Allergy Mild neuropathy Verified 08/31/19 07:54 Medications Home Medications Medication Instructions Recorded Confirmed Last Taken bisacodyl 5 mg tablet 10 mg PO PM PRN tab 06/13/18 08/31/19 10/04/18 docusate sodium 100 mg capsule 200 mg PO PM cap 06/13/18 08/31/19 10/04/18 meloxicam 15 mg tablet 15 mg PO PM 06/13/18 08/31/19 10/04/18 metoprolol succinate 50 mg 50 mg PO QAM 06/13/18 08/31/19 10/04/18 tablet,extended release 24 hr zolpidem 5 mg tablet 10 mg PO HS tab 06/13/18 08/31/19 10/04/18 10 mg cholecalciferol (vitamin D3) 50,000 unit PO 2XWK 10/05/18 08/31/19 Unknown hydrochlorothiazide 25 mg PO QAM 10/05/18 08/31/19 Unknown cetirizine 10 mg tablet 10 mg PO QAM #30 tab 10/16/18 08/31/19 Unknown aspirin 81 mg chewable tablet 81 mg PO PM #90 tab 11/08/18 08/31/19 Unknown lidocaine 5 % topical ointment 1 applic TOPICAL UD PRN #120 gm 11/08/18 08/31/19 Unknown epinephrine 0.3 mg/0.3 mL 0.3 mg IM Q20M PRN #2 ea 02/05/19 08/31/19 Unknown injection, auto-injector venlafaxine 75 mg capsule,extended 150 mg PO HS #30 cap 04/30/19 08/31/19 Unknown release 24 hr Lactobacillus acidophilus 1,000 mmu cells PO QAM 08/31/19 08/31/19 Unknown [Probiotic Acidophilus] Palmitoylethanolamide 400 mg PO TID 08/31/19 08/31/19 Unknown Serraptase 40,000 unit PO PM 08/31/19 08/31/19 Unknown acetaminophen [Tylenol 8 Hour] 1,300 mg PO QAM 08/31/19 08/31/19 Unknown alpha lipoic acid 200 mg PO QAM 08/31/19 08/31/19 Unknown [id number] 500 cap PO QAM 08/31/19 08/31/19 Unknown magnesium 400 mg PO BID 08/31/19 08/31/19 Unknown pregabalin [Lyrica] 100 mg PO BID 08/31/19 08/31/19 Unknown immun glob G(IgG)-pro-IgA 0-50 8 g SUBCUT WK #200 ml 09/04/19 Unknown Past Medical History Medical History Anxiety and depression Cervicalgia Chronic pain Degenerative disc disease GERD (gastroesophageal reflux disease) controlled Hyperlipidemia Insomnia Kidney stones Lumbago Osteoarthritis Peripheral neuropathy Small fiber neuropathy IGA for this /follows with [facility] neurology- currently weaning off Lyrica (did not have improvement in symptoms) Tachycardia + palpitations- controlled on metoprolol Exercise / Class Metabolic Activity III < 4 Walking/Shop/Light housework Past Family History Family History Father Bladder cancer Stroke Brother Coronary heart disease Mother Stroke Other Hypertension Past Surgical History Surgical History H/O wisdom tooth extraction H/O: hysterectomy History of bladder surgery bladder tac History of colonoscopy History of lithotripsy S/P shoulder surgery left > rotator cuff S/P tonsillectomy and adenoidectomy Past Anesthesia History No Family Hx of Anesthesia Complications and Other (significant neuropathy s/p cervical spinal/epidural- follows with [facility] neuro) History of PONV No Hx of PONV and No Hx of Motion Sickness Social History Smoking Status: Never smoker Do You Dip or Chew Tobacco: No Hx Alcohol Use: No Hx Substance Use: No substance use type: does not use Review of Systems Reflux controlled. Patient denies chest pain, shortness of breath, fever, chills, cough, wheezing, palpitations. Physical Exam Vital Signs VITALS BP 98/66 P 61 TEMP 98.4 SP02 96%RA RESP 16 PHYSICAL Full neck and c-spine range of motion. Full TMJ range of motion. TMD 3 finger breaths Mallampati Score 3 Dentition: temporary on upper left side (plan for permanent crown placement prior to surgery- patient will notify surgeon if dental work being done prior to surgery) Lungs: clear throughout to auscultation Cardiac: regular rate and rhythm, no murmurs noted Spine: normal Carotid arteries: negative bruit Extremities: no edema Testing Laboratory Results 09/11/19 10:11 09/11/19 10:11 PT 10.6 Seconds (9.0-12.0) 09/11/19 10:11 INR 1.0 (0.9-1.1) 09/11/19 10:11 APTT 27.6 Seconds (21.0-31.0) 09/11/19 10:11 Urine Color Dark Yellow 09/11/19 10:11 Urine Appearance Clear (Clear) 09/11/19 10:11 Urine pH 5.5 (4.5-7.5) 09/11/19 10:11 Ur Specific [place] 1.037 (1.000-1.030) H 09/11/19 10:11 Urine Protein Trace (Negative) H 09/11/19 10:11 Urine Glucose (UA) Negative (Negative) 09/11/19 10:11 Urine Ketones Trace (Negative) H 09/11/19 10:11 Urine Nitrite Negative (Negative) 09/11/19 10:11 Ur Leukocyte Esterase Negative (Negative) 09/11/19 10:11 Urine WBC (Auto) 1-5 /hpf (0-5) 09/11/19 10:11 Urine RBC (Auto) 0-4 /hpf (0-4) 09/11/19 10:11 U Hyaline Cast (Auto) 0 /lpf (0-5) 09/11/19 10:11 U Epithel Cells (Auto) >30 /lpf (0-5) H 09/11/19 10:11 Urine Bacteria (Auto) Negative (Negative) 09/11/19 10:11 Blood Type O Positive 09/11/19 10:11 Antibody Screen NEGATIVE 09/11/19 10:11 Electrocardiogram Date: 10/05/18 NSR at 90bpm. NS ST/TWA. *poor data quality* Chest X-Ray Date: 09/11/19 Findings: + NAD Stress Test Date: 04/11/17 Type: DSE LVEF 60-64%. No RWMA. Stress ECHO negative for inducible ischemia. Borderline posterior mitral leaflet prolapse. Mild MR/TR. 112% MPHR.
[2019-09-11 10:53] LABS: BUN Creatinine Ratio 25.9 (10-20); Calcium 9.5 mg/dl (8.5-10.1); Creatinine Clr Calc Pharmacy 51.5 ml/min; Est GFR (African American) 71.2; Est GFR (Non-African American) 61.4; Potassium 3.5 mmol/L (3.5-5.1)
--- NOTE | 2019-09-11 10:57 | XRay Report ---
TWO VIEW CHEST CLINICAL HISTORY: Preoperative examination. FINDINGS: PA and lateral chest radiographs are correlated with chest CT dated 09/18/2018. The cardiomed iastinal silhouette is unremarkable. The lungs and pleural spaces are clear. There is no pneumothora x. The skeletal structures are osteopenic. The bony thorax appears intact. IMPRESSION: No active disease in the chest. ACT 112: Negative or not required by law. Electronically signed by: Aba Silverman M.D. 09/11/2019 10:56 AM
[2019-09-11 11:44] LABS: Basophils # (auto) 0.01 K/uL (0-0.2); Basophils % (auto) 0.2 %; Eosinophils # (auto) 0.03 K/uL (0-0.5); Eosinophils % (auto) 0.7 %; Hematocrit (blood only) 35.9 % (37-47); Hemoglobin 12.1 g/dL (12.0-16.0); Lymphocytes # (auto) 1.07 K/uL (1.2-3.4); Lymphocytes % (auto) 23.2 %; Mean Corpuscular Hemoglobin 31.2 pg (25-34); Mean Corpuscular Hgb Conc 33.7 g/dL (32-36); Mean Corpuscular Volume 92.5 fL (80-100); Mean Platelet Volume 12.9 fL (7.4-10.4); Monocytes # (auto) 0.25 K/uL (0.11-0.59); Monocytes % (auto) 5.4 %; Neutrophils # (auto) 3.25 K/uL (1.4-6.5); Neutrophils % (auto) 70.5 %; Platelet Count 242 K/uL (130-400); RDW Coefficient of Variation 13.6 % (11.5-14.5); RDW Standard Deviation 45.6 fL (36.4-46.3); Red Blood Count 3.88 M/uL (4.2-5.4); White Blood Count 4.61 K/uL (4.8-10.8)
[2019-09-11 11:54] LABS: Appearance Urine Clear (Clear); Bacteria Urine Automated Negative (Negative); Bilirubin Urine Negative (Negative); Blood Urine Negative (Negative); Color Urine Dark Yellow; Epithelial Cell Urine Auto >30 /lpf (0-5); Glucose Urine UA Negative (Negative); Ketones Urine Trace (Negative); Leukocyte Esterase Urine Negative (Negative); Nitrite Urine Negative (Negative); Protein Urine Trace (Negative); RBC Urine Automated 0-4 /hpf (0-4); Specific Gravity Urine 1.037 (1.000-1.030); Urobilinogen Urine Negative (Negative); pH Urine 5.5 (4.5-7.5)
[2019-09-11 12:00] LABS: Partial Thromboplastin Time 27.6 Seconds (21.0-31.0); Prothrombin Time 10.6 Seconds (9.0-12.0)
[2019-09-11 12:24] LABS: Cast Urine Automated 0 /lpf (0-5)
[~2019-11-05 07:56] MED LIST: ACETAMINOPHEN 500 MG TAB PO SCH; ANCEF - ALLERGY NOTED TO ORDERED MEDICATION SCH; CEFAZOLIN 1000MG 1,000 MG/7.5 ML SYR IV SCH; CeleBREX 200 MG CAP PO SCH; GABAPENTIN 600 MG DOSE PO SCH; LR 15ML/HR IV SCH; PROPOFOL IV EMULSION 10 MG/ML 100 ML VIAL IV ONE
[2019-11-05] MEDS ORDERED: MIDAZOLAM HCL 1 MG/ML 2ML VIAL ONE (08:42)
[2019-11-05] MEDS ORDERED: fentaNYL citrate 100 MCG/2 ML VIAL ONE ×2 (08:42)
--- NOTE | 2019-11-05 09:18 | History & Physical Bridge Note ---
Date of Service November 05, 2019 History & Physical Bridge Note I have examined the patient, reviewed the History & Physical and in the interval since the performance of the History & Physical I have noted the following changes of clinical significance: no changes noted
--- NOTE | 2019-11-05 09:18 | History & Physical Report ---
Date of Service November 05, 2019 Assessment & Plan Admission and Anticipated Discharge Date Admission Date: C6-C7 anterior cervical discectomy and fusion, C4-C7 fusion, C5 corpectomy History of Present Illness Chief Complaint: Neck and bilateral arm pain Primary Care Provider: Saroj Rai DO This is a 64-year-old female known to me that presents with chronic persistent neck and arm pain. After failing a course of nonoperative care is here for the above-mentioned procedure. Allergies Allergy/AdvReac Type Severity Reaction Status Date / Time triamcinolone [From Kenalog] Allergy Severe neuropathy Verified 11/05/19 08:28 cephalexin Allergy Intermediate hives Verified 11/05/19 08:28 levofloxacin [From Levaquin] Allergy Intermediate Hives Verified 11/05/19 08:28 Sulfa (Sulfonamide Allergy Mild Rash Verified 11/05/19 08:28 Antibiotics) sulfamethoxazole Allergy Mild Rash Verified 11/05/19 08:28 Home Medications Home Medications Medication Instructions Recorded Confirmed Type bisacodyl 5 mg tablet 10 mg PO PM PRN tab 06/13/18 11/05/19 History docusate sodium 100 mg capsule 200 mg PO PM cap 06/13/18 11/05/19 History meloxicam 15 mg tablet 15 mg PO PM 06/13/18 11/05/19 History zolpidem 5 mg tablet 5 mg PO HS tab 06/13/18 11/05/19 History cholecalciferol (vitamin D3) 50,000 unit PO 2XWK 10/05/18 11/05/19 History hydrochlorothiazide 25 mg PO QAM 10/05/18 11/05/19 History cetirizine 10 mg tablet 10 mg PO QAM #30 tab 10/16/18 11/05/19 Rx aspirin 81 mg chewable tablet 81 mg PO PM #90 tab 11/08/18 11/05/19 History lidocaine 5 % topical ointment 1 applic TOPICAL UD PRN #120 gm 11/08/18 11/05/19 History epinephrine 0.3 mg/0.3 mL 0.3 mg IM Q20M PRN #2 ea 02/05/19 11/05/19 Rx injection, auto-injector venlafaxine 75 mg capsule,extended 150 mg PO HS #30 cap 04/30/19 11/05/19 History release 24 hr Lactobacillus acidophilus 1,000 mmu cells PO QAM 08/31/19 11/05/19 History [Probiotic Acidophilus] [id number] 500 cap PO QAM 08/31/19 11/05/19 History magnesium 400 mg PO BID 08/31/19 11/05/19 History immun glob G 10 gram/50 mL(20 8 g SUBCUT WK #200 ml 09/04/19 11/05/19 Rx %)-pro-IgA 0-50 mcg/mL subcutaneous soln buprenorphine HCl 8 mg SUBLINGUAL BID 10/31/19 11/05/19 History nystatin 5 ml PO QID PRN 11/05/19 11/05/19 History Past Med/Surg History Medical History Anxiety and depression Cervicalgia Chronic pain Degenerative disc disease GERD (gastroesophageal reflux disease) controlled Hyperlipidemia Insomnia Kidney stones Lumbago Osteoarthritis Peripheral neuropathy Small fiber neuropathy IGA for this /follows with [facility] neurology- currently weaning off Lyrica (did not have improvement in symptoms) Tachycardia + palpitations- controlled on metoprolol Surgical History H/O wisdom tooth extraction H/O: hysterectomy History of bladder surgery bladder tac History of colonoscopy History of lithotripsy S/P shoulder surgery left > rotator cuff S/P tonsillectomy and adenoidectomy Family History Father Bladder cancer Stroke Brother Coronary heart disease Mother Stroke Other Hypertension Social History Smoking Status: Never smoker Second Hand Exposure: Yes ( A CHILD); Do You Dip or Chew Tobacco: No; Tobacco Cessation Education Requested by Patient: No Hx Alcohol Use: No Hx Substance Use: No Preferred Language: Telugu Communication Ability: Effective Fishing Worker Required: No Beliefs That Will Affect Care: None Current Living Situation: Spouse Other Information That Helps Us Care for You: No Feels Safe at Home: Yes Safety Concerns: Feels Safe At This Time Physical Exam Physical Exam: Patient is alert and oriented neurologically intact. Heart regular rate and rhythm. Lungs clear to auscultation. Results & Data ([facility]) Vital Signs (Past 12 Hours) Vital Signs Temp Pulse Resp BP Pulse Ox 11/05/19 08:38 37.1 C 95 H 18 120/72 99
[2019-11-05] MEDS ORDERED: BACITRACIN INJ 50,000 UNIT VIAL ONE (09:35)
[2019-11-05] MEDS ORDERED: ONDANSETRON INJ 2 MG/ML 2 ML VIAL IV PRN ×2 (09:45→14:25)
[2019-11-05] MEDS ORDERED: ePHEDrine sulfate 50 MG/ML AMP IV PRN (09:45)
[2019-11-05] MEDS ORDERED: PROMETHAZINE HCL 6.25 MG in SODIUM CHLORIDE 0.9% 50 ML IV PRN (09:45)
[2019-11-05] MEDS ORDERED: ATROPINE SULFATE 0.1 MG/ML 10ML SYR IV PRN (09:45)
[2019-11-05] MEDS ORDERED: ACETAMINOPHEN 1000 MG/100 ML IV IV ONE (09:46)
[2019-11-05] MEDS: CLINDAMYCIN 600 MG/54 ML BAG IV SCH (09:47)
--- NOTE | 2019-11-05 10:30 | Electrocardiogram Report ---
Test Reason : Blood Pressure : / mmHG Vent. Rate : 092 BPM Atrial Rate : 092 BPM P-R Int : 146 ms QRS Dur : 074 ms QT Int : 374 ms P-R-T Axes : 082 069 -53 degrees QTc Int : 462 ms Normal sinus rhythm Diffuse Nonspecific ST and T wave abnormality Abnormal ECG When compared with ECG of 05-OCT-2018 15:16, ST depression in multiple leads more pronounced Confirmed by Ramon Mead ([id number]) on 11/05/2019 10:30:03 AM Referred By: Toby Russell Confirmed By:Ramon Mead
[2019-11-05] MEDS ORDERED: ROCURONIUM BROMIDE 10 MG/ML 5 ML VIAL IV ONE (10:42)
[2019-11-05] MEDS ORDERED: ePHEDrine sulfate 50 MG/ML SYR ONE (10:42)
[2019-11-05] MEDS ORDERED: SUCCINYLCHOLINE 100MG/5ML SYR IV ONE (10:42)
[2019-11-05] MEDS ORDERED: LIDOCAINE HCL 2% 2 ML VIAL/AMP(20MG/ML) INFIL ONE (10:42)
[2019-11-05] MEDS ORDERED: PROPOFOL IV EMULSION 10 MG/ML 20 ML VIAL IV ONE (10:42)
[2019-11-05] MEDS ORDERED: GLYCOPYRROLATE 0.2 MG/ML VIAL ONE (10:42)
[2019-11-05] MEDS ORDERED: ONDANSETRON INJ 2 MG/ML 2 ML VIAL ONE (10:42)
[2019-11-05] MEDS ORDERED: NEOSTIGMINE METHYLSULFATE 1 MG/ML 10ML VIAL ONE (10:42)
[2019-11-05] MEDS ORDERED: DEXAMETHASONE SOD INJ 4 MG/ML VIAL ONE (10:42)
[2019-11-05] MEDS ORDERED: PHENYLEPHRINE 100MCG/ML 5ML SYR ONE (10:42)
[2019-11-05] MEDS ORDERED: FLOSEAL HEMOSTATIC MATRIX 10ML TOP ONE (11:33)
[2019-11-05] MEDS ORDERED: LARYING-O-JET KIT (LTA) ONE (11:41)
--- NOTE | 2019-11-05 11:45 | Operative Report ---
Post Operative Report Pre & Post Diagnosis Operation Date: 11/05/19 09:35 Pre-Op Diagnosis: Spinal Stenosis, Cervical Region C4-C7 Post-Op Diagnosis: Spinal Stenosis, Cervical Region C4-C7 I identified the patient and participated in the time-out.: Yes Procedure Operation Date: 11/05/19 09:35 Actual Procedures #1 anterior cervical corpectomy with bilateral foraminotomies C5. #2 anterior cervical discectomy with bilateral foraminotomies C6-C7. #3 anterior cervical arthrodesis C4-C6 and C6-C7. #4 placement peek cage 25 mm in height at C4-C6 and 7 L height at C6-C7. #5 placement locally harvested morselized autograft combined with DBM and the interbody cages. #6 application of 5 complete and screws from C4 to c 7. Surgeon Toby Russell, DO Heavy Equipment Mechanic Jenifer Cortes Estimated Blood Loss 20 Findings Consistent with Post-Op Diagnosis Specimens None Indications This is a 64-year-old female well-known to me the presents with continued neck and arm symptoms. After failing a course of nonoperative care is here for surgical intervention. Description of Procedure Patient was met with identified informed consent obtained. Patient was then taken to the operative suite underwent an patient placed in a supine position Elvis table head Hernandes head buyer tobacco. All bony prominences well-padded eyes inspected to ensure no external pressure placed upon the. This point the anterior cervical spine is prepped and draped in a sterile fashion. With the assistance of fluoroscopy identified the C5-6 displacement transverse incision was placed along the right anterior aspect of the cervical spine overlying this region. Sharp dissection with assistance of bipolar electrocautery was then performed down to and exposing the anterior cervical spine from C4-C7. [place] retractors placed. Then performed a complete discectomy of C4-5 out to the uncovertebral joints bilaterally followed by C5-C6. [place] distracting pins were then placed in C4 and C6 to distract across the C5 vertebral body. A complete corpectomy was then performed including removal of all posterior annul ar fibers longitudinal ligament bilateral foraminotomies completed. Endplates were then burred to subcortical bleeding bone and a 25 mm peek cage filled with local autograft and DBM tapped in position. Distracting apparatus was removed I proceeded to C6-7. Again complete discectomy performed up to the uncovertebral joints bilaterally. Bilateral foraminotomies performed. Endplates were then bu rred to subcortical bleeding bone and a 7 mm peek cage filled with local autograft and DBM tapped in position. Distracting apparatus was removed all anterior osteophytes producing with cortical surface and a 5 complete screws applied with the assistance of fluoroscopy. The incision was then copiously irrigated explored to ensure no damage to surrounding structures remaining bleeding. A 10 round GOMEZ drain was then inserted. The incision was then closed with 2 Vicryl in a fashion of 4 Monocryl for final skin closure. Steri-Strips dressings placed. Patient will continue PACU stable condition. Please note spinal cord monitoring was utilized that the procedure and no changes noted. Lastly Jenifer Cortes was present at the entire surgery involved in patient positioning complex portions of the surgery and final skin closure. I attest to the content of the Intraoperative Record and any orders documented therein. Any exceptions are noted below.
--- NOTE | 2019-11-05 11:58 | Fluoroscopy Report ---
INTRAOPERATIVE RADIOGRAPHS CLINICAL HISTORY: C4-C7 spinal fusion. Fluoroscopy time: 10 seconds. FINDINGS: 2 spot fluoroscopic views of the cervical spine are presented. There has been corpectomy in the lower cervical spine with evidence of anterior fusion from C4-C7. There is been discectomy at C6 -C7. The orthopedic hardware appears intact. An endotracheal tube is noted. IMPRESSION: Intraoperative images from C4-C7 spinal fusion as above. Electronically signed by: Aba Silverman M.D. 11/05/2019 11:56 AM
[2019-11-05] MEDS: fentaNYL citrate 100 MCG/2 ML VIAL IV PRN ×4 (12:23→12:50)
[2019-11-05] MEDS ORDERED: HYDROmorphone INJ 2 MG/ML SYR/VIAL ONE (12:59)
[2019-11-05] MEDS: HYDROmorphone INJ 0.5 MG/0.5 ML SYR IV PRN ×4 (13:01→13:17)
--- NOTE | 2019-11-05 13:33 | Anesthesiology Progress Note ---
Date of Service November 05, 2019 Anesthesia Post Procedure Vital Signs Vital Signs: Temp Pulse Pulse Resp BP BP Pulse Ox 11/05/19 13:25 94 H 24 110/67 100 11/05/19 13:15 95 H 13 108/71 99 11/05/19 13:05 93 H 12 114/55 L 100 11/05/19 12:55 92 H 12 115/66 100 11/05/19 12:45 94 H 13 125/78 98 11/05/19 12:35 98 H 12 122/66 97 11/05/19 12:25 88 15 123/71 95 11/05/19 12:15 95 H 12 118/77 99 11/05/19 12:08 36.4 C L 90 21 118/74 99 11/05/19 08:38 37.1 C 95 H 18 120/72 99 Pain Intensity Back: Pain Intensity: 7 Bilateral Other: Pain Intensity: 6 Anterior Neck: Pain Intensity: 7 Transfer of Care Handoff Completed per policy Notes Mental Status: alert / awake / arousable Patient Amnestic to Procedure: Yes Nausea / Vomiting: adequately controlled Pain: adequately controlled Airway Patency, RR, SpO2: stable & adequate BP & HR: stable & adequate Hydration State: stable & adequate Anesthetic Complications: no major complications apparent
[2019-11-05] MEDS ORDERED: ONDANSETRON 4 MG OD TAB PO PRN (14:25)
[2019-11-05] MEDS ORDERED: NALOXONE HCL 0.4 MG/1 ML VIAL/CARP IV PRN (14:25)
[2019-11-05] MEDS ORDERED: ALUMINUM/MAGNESIUM SUSP 30 ML UDC PO PRN (14:25)
[2019-11-05] MEDS ORDERED: SOD PHOSPHATE/SOD BIPHOSPHATE ENEMA 132 ML BTL PR PRN (14:25)
[2019-11-05] MEDS ORDERED: MAGNESIUM HYDROXIDE SUSP 30 ML UDC PO PRN (14:25)
[2019-11-05] MEDS ORDERED: ACETAMINOPHEN 500 MG TAB PO PRN (14:25)
[2019-11-05] MEDS ORDERED: LORazepam 0.5 MG TAB PO PRN (14:25)
[2019-11-05] MEDS ORDERED: PROMETHAZINE HCL 12.5 MG in SODIUM CHLORIDE 0.9% 50 ML IV PRN (14:25)
[2019-11-05] MEDS ORDERED: DO NOT ADMINISTER FLU VACCINE PRN (14:25)
[2019-11-05] MEDS ORDERED: HYDROmorphone INJ 0.5 MG/0.5 ML SYR IV PRN (14:25)
[2019-11-05] MEDS ORDERED: RACEPINEPHRINE 2.25% NEBU SOLN 0.5 ML VIAL INH PRN (14:25)
[2019-11-05] MEDS ORDERED: LORazepam 0.5 MG/1 ML VIAL IV PRN (14:25)
[2019-11-05] MEDS ORDERED: DO NOT ADMINISTER PNEUMOCOCCAL VACCINE PRN (14:25)
[2019-11-05] MEDS ORDERED: HYDROmorphone INJ 1 MG/ML SYRINGE IV PRN (14:25)
[2019-11-05] MEDS ORDERED: DEXAMETHASONE SOD PHOSPHATE 8 MG in SYRINGE 0 ML IV PRN (14:25)
[2019-11-05] MEDS ORDERED: ACETAMINOPHEN 1,000 MG/100 ML VIAL IV PRN (14:25)
[2019-11-05] MEDS ORDERED: FAMOTIDINE 20 MG TAB PO PRN (14:25)
[2019-11-05] MEDS ORDERED: METOCLOPRAMIDE HCL INJ 5 MG/ML 2 ML VIAL IV PRN (14:25)
[2019-11-05] MEDS: CLINDAMYCIN 600 MG in DEXTROSE 5% 50 ML IV SCH (18:16)
[2019-11-05] MEDS: DEXAMETHASONE SOD PHOSPHATE 6 MG in SYRINGE 0 ML IV SCH (19:24)
[2019-11-05] MEDS ORDERED: ZOLPIDEM TARTRATE 5 MG TAB PO SCH (21:00)
[2019-11-05] MEDS ORDERED: DOCUSATE SODIUM/SENNA 50/8.6MG TAB PO SCH (21:00)
[2019-11-05] MEDS ORDERED: DOCUSATE SODIUM 100 MG CAP PO SCH (21:00)
[2019-11-05] MEDS ORDERED: ASPIRIN 81 MG ECTAB PO SCH (21:00)
[2019-11-05] MEDS ORDERED: VENLAFAXINE HCL XR 150 MG CAPXR PO SCH (21:00)
[2019-11-05] MEDS: MAGNESIUM OXIDE 400 MG TAB PO SCH (21:14)
[2019-11-05] MEDS: buprenorphine HCL 8 MG SUBL SL SCH (21:14)
[2019-11-05] MEDS: OXYCODONE HCL IR 5 MG TAB (IMMEDIATE RELEASE) PO PRN (21:15)
[2019-11-05] MEDS: SODIUM CHLORIDE 0.9% 1000ML 1,000 ML IV SCH (23:12)
[2019-11-05] MEDS: TRAMADOL HCL 50 MG TABLET PO PRN (23:23)
[2019-11-06] MEDS ORDERED: COUGH DROP (SUGAR FREE) LOZ 24 LOZ/1 BOX BUCCAL ONE (01:10)
[2019-11-06] MEDS: CLINDAMYCIN 600 MG in DEXTROSE 5% 50 ML IV SCH (03:22)
[2019-11-06] MEDS: DEXAMETHASONE SOD PHOSPHATE 6 MG in SYRINGE 0 ML IV SCH (03:22)
[2019-11-06] MEDS: OXYCODONE HCL IR 5 MG TAB (IMMEDIATE RELEASE) PO PRN ×2 (03:36→07:13)
[2019-11-06] MEDS: CLINDAMYCIN 600 MG/54 ML BAG IV SCH (05:02)
[2019-11-06] MEDS: TRAMADOL HCL 50 MG TABLET PO PRN ×2 (05:21→09:18)
[2019-11-06] MEDS: SODIUM CHLORIDE 0.9% 1000ML 1,000 ML IV SCH (06:21)
[2019-11-06] MEDS: buprenorphine HCL 8 MG SUBL SL SCH (08:32)
[2019-11-06] MEDS: MAGNESIUM OXIDE 400 MG TAB PO SCH (08:33)
[2019-11-06] MEDS ORDERED: hydroCHLOROthiazide 25 MG TAB PO SCH (09:00)
[2019-11-06] MEDS ORDERED: [UNRECOGNIZED DRUG - OTHER] PO SCH (09:00)
[2019-11-06] MEDS ORDERED: CETIRIZINE HCL 10 MG TABLET PO SCH (09:00)
[2019-11-06] MEDS ORDERED: LACTOBACILLUS ACIDOPHILUS PO SCH (09:00)
[2019-11-06] MEDS ORDERED: [UNRECOGNIZED DRUG - OTHER] PO SCH (09:00)
[2019-11-06] MEDS ORDERED: POLYETHYLENE (MIRALAX) 17 GM PACK PO SCH (12:00)
--- NOTE | 2019-11-06 12:12 | Discharge Summary ---
Date of Service November 06, 2019 Admission HPI Per Admitting Provider This is a 64-year-old female known to me that presents with chronic persistent neck and arm pain. After failing a course of nonoperative care is here for the above-mentioned procedure. Principal Diagnosis Cervical spinal stenosis with radiculopathy Discharge Data Allergies Allergy/AdvReac Type Severity Reaction Status Date / Time triamcinolone [From Kenalog] Allergy Severe neuropathy Verified 11/05/19 08:28 cephalexin Allergy Intermediate hives Verified 11/05/19 08:28 levofloxacin [From Levaquin] Allergy Intermediate Hives Verified 11/05/19 08:28 Sulfa (Sulfonamide Allergy Mild Rash Verified 11/05/19 08:28 Antibiotics) sulfamethoxazole Allergy Mild Rash Verified 11/05/19 08:28 Procedures Performed Operation Date: 11/05/19 09:35 Actual Procedures p C6-C7 Anterior Cervical Discectomy and Fusion, C4-C7 Fusion, C5 Corpectomy, Spinal Cord Monitoring(Not Applicable) - Toby Russell DO Ordered Studies 11/05/19 [place] fluoroscopy <1hr Routine 11/05/19 09:35 FL cervical 2-3V Routine Hospital Course (1) Cervical radiculitis: Patient underwent multilevel anterior cervical discectomy and fusion tolerated this well was taken to orthopedic floor possibly. Postop day 1 she is swallowing well no hoarseness. Pain well controlled. Excellent strength testing. GOMEZ drain decreasing appropriately. Subsequently discharged home. Discharge orders instructions and the chart for further review. Total Time Total Time Spent Total Time Spent (In Minutes): 20 minutes Discharge Plan Discharge Items Patient Disposition: Home - Self-Care Reason For Visit: Spinal Stenosis, Cervical Region Discharge Diagnosis: Cervical spinal stenosis with radiculopathy Activity: As commented below Non-emergency contact: Primary Care Provider Call non-emergency contact if: you have any medication questions Follow-up/Referrals: Saroj Rai DO [Primary Care Provider] - Diet: Regular Addtl Attending Provider Instructions: ACTIVITY RECOMMENDATIONS: SELF CARE INSTRUCTIONS AFTER CERVICAL FUSIONS 1. No smoking. Smoking drastically decreases the chance of a solid fusion. 2. No bending, lifting more than 5 pounds, or twisting (roll like a log when turning in bed). 3. You may shower 3 days after surgery. Thoroughly dry wound. Do not soak in the tub. 4. Cervical collar: Must be worn at all times including sleeping. You may remove the brace only to bath, eat and if you are sitting in a recliner. 5. Please walk as much as you can for exercise. Gradually increase the distance that you walk as your endurance increases. SPECIAL CARE INSTRUCTIONS: VERY IMPORTANT TO READ AND REVIEW A. Do not take any anti-inflammatory medications (i.e. Indocin, Advil, Aspirin, Naprosyn, Aleve, Motrin, etc.) as these may inhibit the chance of a solid fusion. Tylenol is okay to take. B. Your surgical incision has been closed with a cosmetic suture under the skin that will dissolve in about 6 weeks. In 14 days, you can use a pair of clean scissors and cut the suture that is left outside of the skin at the ends of your incision. C. Complications are uncommon, but please contact us if you have any signs or symptoms of: 1. wound infection (fever higher than 102.5 degrees F, redness, separation of wound, drainage, or increasing pain from the incision) 2. blood clots in legs (pain, swelling, redness and warmth in legs) 3. urinary tract infection (fever higher than 102.5 degrees, burning upon urination or increased frequency of urination) 4. nerve problems (inability to walk on your toes or heels, numbness, loss of bowel or bladder control) 5. any other symptoms that concern you. D. Please call the office at if you have any concerns or questions about your operation or recovery. MANAGING PAIN AFTER SPINAL SURGERY 1. Narcotic medication is intended for short-term use and will be provided for surgical pain. Surgical pain usually lasts for a period of 4-6 weeks. Narcotic medication includes Percocet, Vicodin, Darvocet, Tylenol #3 or Lortab. 2. Longer-term pain is more appropriately treated with non-narcotic medication such as Tylenol ES. 3. Muscle spasm is not appropriately treated with narcotics. Muscle relaxers such as Soma, Flexeril or Skelaxin can be used along with Tylenol ES. 4. Remember that we all live with some "aches and pains". This is not unusual or uncommon after an injury or as we get older. 5. We will provide appropriate medication within the normal guidelines of their prescribed use. We will also be very cautious and aware of potential abuse and extended duration of patients' medication needs. 6. Please allow 2-3 days to process refills. Prescriptions will not be mailed but must be picked up at the office. FOLLOW UP VISIT: Keep your scheduled follow-up appointment. Any questions, please call the office at . Pending Studies at Discharge: No Stand-Alone Forms: My [facility] [employer], Smoking Cessation Medications and DC Order Prescriptions: New oxycodone 5 mg tablet 5 mg PO Q6H PRN (Reason: pain, severe) Qty: 20 RF: 0 tramadol 50 mg tablet 50 mg PO Q6H PRN (Reason: pain, moderate) Qty: 20 RF: 0 Continued zolpidem [Ambien] 5 mg tablet 5 mg PO HS RF: 0 docusate sodium [Colace] 100 mg capsule 200 mg PO PM RF: 0 Correctol 5 mg tablet 10 mg PO PM PRN (Reason: Constipation) RF: 0 cetirizine [Zyrtec] 10 mg tablet 10 mg PO QAM Qty: 30 RF: 3 epinephrine 0.3 mg/0.3 mL auto-injector 0.3 mg IM Q20M PRN (Reason: anaphylaxis) Qty: 2 RF: 0 Hizentra 10 gram/50 mL (20 %) solution 8 g subcut WK Qty: 200 RF: 11 aspirin 81 mg tablet,chewable 81 mg PO PM Qty: 90 RF: 0 lidocaine 5 % ointment 1 applic topical UD PRN (Reason: pain) Qty: 120 RF: 0 venlafaxine 75 mg capsule,extended release 24hr 150 mg PO HS Qty: 30 RF: 0 magnesium 200 mg Tablet 400 mg PO BID RF: 0 [id number] 500 mg Capsule 500 cap PO QAM RF: 0 Probiotic Acidophilus 1.5 mg (250 million cell) Capsule 1,000 mmu cells PO QAM RF: 0 buprenorphine HCl 8 mg Tablet, Sublingual 8 mg SUBLINGUAL BID RF: 0 nystatin 100,000 unit/mL suspension 5 ml PO QID PRN (Reason: thrush) RF: 0 hydrochlorothiazide 12.5 mg capsule 25 mg PO QAM RF: 0 cholecalciferol (vitamin D3) 50,000 unit Capsule 50,000 unit PO 2XWK RF: 0 Discontinued meloxicam 15 mg tablet 15 mg PO PM RF: 0 Discharge Orders: Discharge Order (Routine); Ordered 11/06/19 Ordered By: Toby Russell Admission Data Admit Date/Time: 11/05/19 12:46 Attending Provider: Toby Russell Admit Provider: Toby Russell Primary Care Provider: Saroj Rai Other Interventions: Discharge Summary Assessment (RN) Last Done: 11/06/19 10:08
[2019-11-07] MEDS ORDERED: bisacodyL 10 MG SUPP PR PRN (11:46)
== END 2019-11-06 11:09 | disposition home or self-care (01) | DRG 473 ==
LOC: 3E 07:56 → ASU 07:56 → OBSVTOIN 12:46

== ENCOUNTER 2019-11-22 16:31 | Observation (INO) ==
[2019-11-22] MEDS ORDERED: SODIUM CHLORIDE 0.9% 1000ML 1,000 ML IV ONE (16:53)
[2019-11-22] MEDS ORDERED: ONDANSETRON INJ 2 MG/ML 2 ML VIAL IV STA (16:53)
[2019-11-22 17:29] LABS: Basophils # (auto) 0.01 K/uL (0-0.2); Basophils % (auto) 0.2 %; Eosinophils # (auto) 0.01 K/uL (0-0.5); Eosinophils % (auto) 0.2 %; Hematocrit (blood only) 38.2 % (37-47); Hemoglobin 12.9 g/dL (12.0-16.0); Lymphocytes # (auto) 1.01 K/uL (1.2-3.4); Lymphocytes % (auto) 18.9 %; Mean Corpuscular Hemoglobin 30.8 pg (25-34); Mean Corpuscular Hgb Conc 33.8 g/dL (32-36); Mean Corpuscular Volume 91.2 fL (80-100); Mean Platelet Volume 13.2 fL (7.4-10.4); Monocytes # (auto) 0.23 K/uL (0.11-0.59); Monocytes % (auto) 4.3 %; Neutrophils # (auto) 4.07 K/uL (1.4-6.5); Neutrophils % (auto) 76.4 %; Platelet Count 249 K/uL (130-400); RDW Coefficient of Variation 14.3 % (11.5-14.5); RDW Standard Deviation 47.1 fL (36.4-46.3); Red Blood Count 4.19 M/uL (4.2-5.4); White Blood Count 5.33 K/uL (4.8-10.8)
[2019-11-22 17:53] LABS: Alanine Aminotransferase 29 U/L (12-78); Albumin Level 3.8 gm/dl (3.4-5.0); Aspartate Aminotransferase 29 U/L (15-37); BUN Creatinine Ratio 10.2 (10-20); Bilirubin Direct 0.2 mg/dl (0-0.2); Blood Urea Nitrogen 8 mg/dl (7-18); Calcium 9.9 mg/dl (8.5-10.1); Carbon Dioxide 28 mmol/L (21-32); Chloride 92 mmol/L (98-107); Est GFR (African American) 90.9; Est GFR (Non-African American) 78.5; Glucose 95 mg/dl (70-99); Lipase 86 U/L (73-393); Potassium 2.6 mmol/L (3.5-5.1); Sodium 136 mmol/L (136-145)
[2019-11-22 17:56] LABS: Alkaline Phosphatase 114 U/L (45-117); Bilirubin,Total 0.6 mg/dl (0.2-1); Total Protein 8.2 gm/dl (6.4-8.2)
[2019-11-22 18:14] LABS: Magnesium 1.6 mg/dl (1.8-2.4)
[2019-11-22] MEDS ORDERED: IOVERSOL 100ml IV ONE (18:14)
[2019-11-22] MEDS ORDERED: POTASSIUM CHLORIDE 10 MEQ TABCR PO STA (18:15)
[2019-11-22] MEDS: MAGNESIUM SULFATE / D5W 1 GM/100 ML BAG IV SCH ×2 (18:24→19:24)
--- NOTE | 2019-11-22 18:37 | CT Scan Report ---
ABDOMEN AND PELVIS CT WITH IV CONTRAST CT DOSE: 390.30 mGycm HISTORY: Left lower quadrant pain. TECHNIQUE: Multiaxial CT images of the abdomen and pelvis were performed following the use of intrave nous contrast. A dose lowering technique was utilized adhering to the principles of ALARA. COMPARISON STUDY: Abdomen and pelvis CT 06/15/2011. FINDINGS: The lung bases are clear. No pneumoperitoneum. No pneumatosis. No suspicious lytic or blast ic osseous lesions. Mild hepatic steatosis. The gallbladder, spleen, adrenal glands, and pancreas are unremarkable. There are few subcentimeter bilateral renal hypodense lesions. These are technically t oo small to characterize. No hydronephrosis. Normal caliber abdominal aorta. No retroperitoneal lymph adenopathy. The bladder is unremarkable. The uterus is surgically absent. No pelvic free fluid. No pe lvic lymphadenopathy. No bowel wall thickening or obstruction. IMPRESSION: 1. No bowel wall thickening or obstruction. 2. Prior hysterectomy. 3. Mild hepatic steatosis. ACT 112: Negative or not required by law. Electronically signed by: Kirk Aguilar M.D. 11/22/2019 6:36 PM
--- NOTE | 2019-11-22 18:37 | Emergency Department Note ---
History of Present Illness General Chief complaint: Vomiting Stated complaint: SPINAL FUSION SURGERY 11/04, VOMITING LAST 48 HRS Time Seen by Provider: 11/22/19 16:44 History of Present Illness Provider complaint: Vomiting Onset (ago): day(s) 2 Location: abdomen Radiation: non-radiation Pain Consistency: + intermittent Maximum Pain Intensity: 9 Relieved By: + none Exacerbated By: + none Associated symptoms: + nausea/vomiting; no confusion, no chest pain, no cough, no diaphoresis, no fever/chills, no headaches, no shortness of breath and no weakness 64-year-old female presents emergency department with vomiting. Patient reports she has had intractable vomiting for the last 2 days. She reports she vomited 9 times yesterday and 5 times a day before. She denies any hematemesis, coffee- ground emesis, or bilious vomiting. She denies any fever chest pain. No shortness of breath. She has any hematuria dysuria. Patient states she thinks her vomiting and nausea are contributed by her taking oxycodone for pain status post her spinal fusion surgery 2 weeks ago. She does report that she was having constipation issues but then took MiraLAX which seemed to resolve these. No melena or hematochezia. Home Medications Home Medications Medication Instructions Recorded Confirmed Type bisacodyl 5 mg tablet 10 mg PO PM PRN tab 06/13/18 11/22/19 History docusate sodium 100 mg capsule 200 mg PO PM cap 06/13/18 11/22/19 History zolpidem 5 mg tablet 5 mg PO HS tab 06/13/18 11/22/19 History cholecalciferol (vitamin D3) 50,000 unit PO 2XWK 10/05/18 11/22/19 History cetirizine 10 mg tablet 10 mg PO QAM #30 tab 10/16/18 11/22/19 Rx aspirin 81 mg chewable tablet 81 mg PO PM #90 tab 11/08/18 11/22/19 History lidocaine 5 % topical ointment 1 applic TOPICAL UD PRN #120 gm 11/08/18 11/22/19 History venlafaxine 75 mg capsule,extended 75 mg PO HS #30 cap 04/30/19 11/22/19 History release 24 hr Probiotic Acidophilus 1,000 mmu cells PO QAM 08/31/19 11/22/19 History [id number] 500 cap PO QAM 08/31/19 11/22/19 History magnesium 400 mg PO BID 08/31/19 11/22/19 History immun glob G 10 gram/50 mL(20 8 g SUBCUT WK #200 ml 09/04/19 11/22/19 Rx %)-pro-IgA 0-50 mcg/mL subcutaneous soln buprenorphine HCl 8 mg SUBLINGUAL BID 10/31/19 11/22/19 History nystatin 5 ml PO QID PRN 11/05/19 11/22/19 History tramadol 50 mg PO Q6H PRN #20 tab 11/05/19 11/22/19 Rx epinephrine 0.3 mg IM UD PRN 11/22/19 11/22/19 History hydrochlorothiazide 25 mg PO DAILY 11/22/19 11/22/19 History linaclotide [Linzess] 72 mcg PO DAILY 11/22/19 11/22/19 History ondansetron HCl [Zofran] 4 mg PO Q8 PRN 11/22/19 11/22/19 History promethazine 25 mg PO TID PRN 11/22/19 11/22/19 History venlafaxine [Effexor XR] 150 mg PO DAILY 11/22/19 11/22/19 History Allergies Allergy/AdvReac Type Severity Reaction Status Date / Time triamcinolone [From Kenalog] Allergy Severe neuropathy Verified 11/22/19 18:42 cephalexin Allergy Intermediate hives Verified 11/22/19 18:42 levofloxacin [From Levaquin] Allergy Intermediate Hives Verified 11/22/19 18:42 Sulfa (Sulfonamide Allergy Mild Rash Verified 11/22/19 18:42 Antibiotics) sulfamethoxazole Allergy Mild Rash Verified 11/22/19 18:42 Past Med/Surg History Medical History Anxiety and depression Cervicalgia Chronic pain Degenerative disc disease GERD (gastroesophageal reflux disease) controlled Hyperlipidemia Insomnia Kidney stones Lumbago Osteoarthritis Peripheral neuropathy Small fiber neuropathy IGA for this /follows with [facility] neurology- currently weaning off Lyrica (did not have improvement in symptoms) Tachycardia + palpitations- controlled on metoprolol Thrush Surgical History H/O wisdom tooth extraction H/O: hysterectomy History of bladder surgery bladder tack History of colonoscopy History of lithotripsy S/P shoulder surgery left > rotator cuff S/P tonsillectomy and adenoidectomy Family History Father Bladder cancer Stroke Brother Coronary heart disease Mother Stroke Other Hypertension Social History Smoking Status: Never smoker Second Hand Exposure: Yes ( A CHILD); Hx Alcohol Use: No Hx Substance Use: No Preferred Language: Faroese Communication Ability: Effective Utility Locator Required: No Beliefs That Will Affect Care: None marital status: Current Living Situation: Spouse Feels Safe at Home: Yes Review of Systems A total of 10 systems reviewed and were otherwise negative Physical Exam Vital Signs Vital Signs - 24 hr 11/22/19 16:38 11/22/19 18:23 Temperature 36.6 C Temperature Source Oral Pulse Rate 98 H Pulse Rate [Finger] 95 H Pulse Rhythm Regular Respiratory Rate 18 18 Respiratory Effort / Characteristics Non-Labored Spontaneous Respiratory Depth Normal Respiratory Pattern Regular Blood Pressure 118/76 Blood Pressure [Left Arm] 124/59 L Blood Pressure Mean 90 Blood Pressure Mean [Left Arm] 80 Pulse Oximetry 100 98 Oxygen Delivery Method Room Air Room Air Sepsis Recent Fever Within 48 Hours No Sepsis New/Unexplained Change in Mental Status No Sepsis Action Taken by Nursing No Action Required Physical Exam GENERAL: She is oriented to person, place, and time. She appears well-developed and well-nourished. She does not appear distressed. HENT: Exam performed. -Head: Normocephalic and atraumatic. -Right Ear: External ear normal. No mastoid tenderness. -Left Ear: External ear normal. No mastoid tenderness. -Mouth/Throat: The oropharynx is clear and moist. No trismus in the jaw. No dental abscesses or uvula swelling. No oropharyngeal exudate or tonsillar a bscesses. EYES: Conjunctivae and EOM are normal. Pupils are equal, round, and reactive to light. Right eye exhibits no discharge. Left eye exhibits no discharge. No scleral icterus. NECK: Patient in cervical collar. Surgical incisions appear clean and dry. No erythema or discharge. CV: Normal rate, regular rhythm, normal heart sounds and intact distal pulses. There is no peripheral edema. Palpable radial pulses bue. PULM/CHEST: Effort normal and breath sounds normal. No respiratory distress. No stridor. She has no wheezes. She has no rales. -Chest Wall: She exhibits no tenderness. ABD: The abdomen is soft. Bowel sounds are normal. She has no distension. No mass is present. There is tenderness to palpation of the left lower quadrant. There is no rebound, no guarding, no Tellez's sign and no tenderness at McBurney's point. Rovsig negative MUSC/SKEL: Normal range of motion. There is no peripheral edema, tenderness or deformity. LYMPH: No cervical adenopathy. NEURO: She is alert and oriented to person, place, and time. She has normal strength. No cranial nerve deficit or sensory deficit. Coordination and gait normal. GCS eye subscore is 4. GCS verbal subscore is 5. GCS motor subscore is 6. Cerebellar tests wnl. SKIN: Skin is warm and dry. She is not diaphoretic. PSYCH: She has a normal mood and affect. Behavior is normal. Judgment and thought content normal. Course Course 164: The patient was evaluated in room B6. A complete history and physical exam was performed. Cardiac monitoring: An order was placed for continuous cardiac monitoring. The monitor shows a rate of 80 with sinus rhythm 1848: Vital signs stable. Labs show potassium 2.6 and magnesium 1.6. Potassium and magnesium repletion started in the emergency department. CT within normal notes. [facility] be [facility] given her electrolyte abnormality and her intractable nausea vomiting. Lindsey ELLISON states to admit to Dr. Rome Administered Medications Magnesium Sulfate/Dextrose (Magnesium Sulfate / D5w) 1 gm in 100 mls @ 100 mls/hr IV Q1H MALGORZATA Stop: 11/22/19 20:14 Last Admin: 11/22/19 18:24 Dose: 100 mls/hr Documented by: Discontinued Medications Sodium Chloride (Nss 1000ml) 1,000 mls @ 999 mls/hr IV .Q1H1M ONE Stop: 11/22/19 17:53 Last Infusion: 11/22/19 18:16 Dose: 0 mls/hr Documented by: [id number] Admin: 11/22/19 17:15 Dose: 999 mls/hr Documented by: [id number] Ioversol (Ioversol 100ml) 94 ml IV ONCE ONE Stop: 11/22/19 18:15 Last Admin: 11/22/19 18:14 Dose: 94 ml Documented by: [id number] Ondansetron HCl (Ondansetron Inj 2 Mg/Ml 2 Ml Vial) 4 mg IV NOW STA Stop: 11/22/19 16:54 Last Admin: 11/22/19 17:15 Dose: 4 mg Documented by: [id number] Medical Decision Making Laboratory Data Result diagrams: 11/22/19 17:18 11/22/19 17:18 Lab Results 11/22/19 11/22/19 Range/Units 17:18 17:18 WBC 5.33 (4.8-10.8) K/uL RBC 4.19 L (4.2-5.4) M/uL Hgb 12.9 (12.0-16.0) g/dL Hct 38.2 (37-47) % MCV 91.2 (80-100) fL MCH 30.8 (25-34) pg MCHC 33.8 (32-36) g/dL RDW Std Deviation 47.1 H (36.4-46.3) fL RDW Coeff of Kristian 14.3 (11.5-14.5) % Plt Count 249 (130-400) K/uL MPV 13.2 H (7.4-10.4) fL Immature Gran % (Auto) 0.0 % Neut % (Auto) 76.4 % Lymph % (Auto) 18.9 % Rock % (Auto) 4.3 % Eos % (Auto) 0.2 % Baso % (Auto) 0.2 % Neut # (Auto) 4.07 (1.4-6.5) K/uL Lymph # (Auto) 1.01 L (1.2-3.4) K/uL Rock # (Auto) 0.23 (0.11-0.59) K/uL Eos # (Auto) 0.01 (0-0.5) K/uL Baso # (Auto) 0.01 (0-0.2) K/uL Immature Gran # (Auto) 0.00 (0.00-0.02) K/uL Sodium 136 (136-145) mmol/L Potassium 2.6 L (3.5-5.1) mmol/L Chloride 92 L (98-107) mmol/L Carbon Dioxide 28 (21-32) mmol/L Anion Gap 16.0 H (3-11) BUN 8 (7-18) mg/dl Creatinine 0.80 (0.6-1.2) mg/dl Est Cr Clr Drug Dosing Not Reportable Est GFR ( Amer) 90.9 Est GFR (Non-Af Amer) 78.5 BUN/Creatinine Ratio 10.2 (10-20) Glucose 95 (70-99) mg/dl Calcium 9.9 (8.5-10.1) mg/dl Magnesium 1.6 L (1.8-2.4) mg/dl Total Bilirubin 0.6 (0.2-1) mg/dl Direct Bilirubin 0.2 (0-0.2) mg/dl AST 29 (15-37) U/L ALT 29 (12-78) U/L Alkaline Phosphatase 114 (45-117) U/L Total Protein 8.2 (6.4-8.2) gm/dl Albumin 3.8 (3.4-5.0) gm/dl Lipase 86 (73-393) U/L Imaging Data Radiologist's Impression: ABDOMEN AND PELVIS CT WITH IV CONTRAST CT DOSE: 390.30 mGycm HISTORY: Left lower quadrant pain. TECHNIQUE: Multiaxial CT images of the abdomen and pelvis were performed following the use of intravenous contrast. A dose lowering technique was utilized adhering to the principles of ALARA. COMPARISON STUDY: Abdomen and pelvis CT 06/15/2011. FINDINGS: The lung bases are clear. No pneumoperitoneum. No pneumatosis. No suspicious lytic or blastic osseous lesions. Mild hepatic steatosis. The gallbladder, spleen, adrenal glands, and pancreas are unremarkable. There are few subcentimeter bilateral renal hypodense lesions. These are technically too small to characterize. No hydronephrosis. Normal caliber abdominal aorta. No retroperitoneal lymphadenopathy. The bladder is unremarkable. The uterus is surgically absent. No pelvic free fluid. No pelvic lymphadenopathy. No bowel wall thickening or obstruction. IMPRESSION: 1. No bowel wall thickening or obstruction. 2. Prior hysterectomy. 3. Mild hepatic steatosis. ACT 112: Negative or not required by law. Electronically signed by: Kirk Aguilar M.D. 11/22/2019 6:36 PM Dictated: 11/[id number]/[id number] Transcribed: 09/10/20 1831 ECG Data Indication: + vomiting Rate (beats per minute): 86 Rhythm: + normal sinus ECG Intervals/blocks: + Normal QRS, + Normal DC and + Normal QT-c ECG ST segments: + Normal ST segments ECG Findings: + U waves [facility] Narrative 1644: The patient was evaluated in room B6. A complete history and physical exam was performed. Cardiac monitoring: An order was placed for continuous cardiac monitoring. The monitor shows a rate of 80 with sinus rhythm 1848: Vital signs stable. Labs show potassium 2.6 and magnesium 1.6. Potassium and magnesium repletion started in the emergency department. CT within normal notes. Patient will be admitted to the [facility] given her electrolyte abnormality and her intractable nausea vomiting. Lindsey ELLISON states to admit to Dr. Rome Impression & Plan Acute hypokalemia, Hypomagnesemia, Intractable nausea and vomiting Discharge Plan Visit Data Chief Complaint: Vomiting Stated Complaint: SPINAL FUSION SURGERY 11/04, VOMITING LAST 48 HRS ED Provider: Bill Foss Discharge Problem: Acute hypokalemia, Hypomagnesemia, Intractable nausea and vomiting Patient Disposition: Admitted As Inpatient Forms Stand Alone Forms: [facility] Prescriptions Prescriptions: No Action zolpidem [Ambien] 5 mg tablet 5 mg PO HS RF: 0 docusate sodium [Colace] 100 mg capsule 200 mg PO PM RF: 0 Correctol 5 mg tablet 10 mg PO PM PRN (Reason: Constipation) RF: 0 cetirizine [Zyrtec] 10 mg tablet 10 mg PO QAM Qty: 30 RF: 3 Hizentra 10 gram/50 mL (20 %) solution 8 g subcut WK Qty: 200 RF: 11 aspirin 81 mg tablet,chewable 81 mg PO PM Qty: 90 RF: 0 lidocaine 5 % ointment 1 applic topical UD PRN (Reason: pain) Qty: 120 RF: 0 venlafaxine 75 mg capsule,extended release 24hr 75 mg PO HS Qty: 30 RF: 0 magnesium 200 mg Tablet 400 mg PO BID RF: 0 [id number] 500 mg Capsule 500 cap PO QAM RF: 0 Probiotic Acidophilus 1.5 mg (250 million cell) Capsule 1,000 mmu cells PO QAM RF: 0 buprenorphine HCl 8 mg Tablet, Sublingual 8 mg SUBLINGUAL BID RF: 0 nystatin 100,000 unit/mL suspension 5 ml PO QID PRN (Reason: thrush) RF: 0 tramadol 50 mg tablet 50 mg PO Q6H PRN (Reason: pain, moderate) Qty: 20 RF: 0 cholecalciferol (vitamin D3) 50,000 unit Capsule 50,000 unit PO 2XWK RF: 0 venlafaxine [Effexor XR] 150 mg capsule,extended release 24hr 150 mg PO DAILY RF: 0 hydrochlorothiazide 25 mg tablet 25 mg PO DAILY RF: 0 epinephrine 0.3 mg/0.3 mL auto-injector 0.3 mg IM UD PRN (Reason: anaphylaxis) RF: 0 ondansetron HCl [Zofran] 4 mg tablet 4 mg PO Q8 PRN (Reason: Nausea) RF: 0 promethazine 25 mg tablet 25 mg PO TID PRN (Reason: Nausea) RF: 0 Linzess 72 mcg capsule 72 mcg PO DAILY RF: 0 Referrals Referrals: Saroj Rai DO [Primary Care Provider] -
[2019-11-22] MEDS ORDERED: buprenorphine HCL 8 MG SUBL SL STA (18:43)
--- NOTE | 2019-11-22 19:46 | History & Physical Report ---
Date of Service November 22, 2019 Assessment & Plan (1) Intractable nausea and vomiting: Pt is 64 y/o F with PMH chronic pain, depression, anxiety, insomnia, chronic constipation presented to ER with c/o vomiting x 2 days. Recent cervical spine surgery on 11/05/[address] Russell. She is on Subutex chronically and was also taking oxycodone and tramadol. Had intermittent N/V thought secondary to oxycodone and tramadol and increased vomiting yesterday. Chronic abdominal pain. Chronic constipation. In ER pt afebrile, P: 98, R: 18, BP: 118/76, 100% RA. No leukocytosis, K: 2.6, magnesium: 1.6, normal LFTs, normal lipase CT abdomen pelvis: No bowel wall thickening or obstruction. Mild hepatic steatosis. Vomiting may be secondary to med side effect In ER patient given 1L NSS, Zofran IV. Patient reports much improvement of nausea. No further vomiting. She reports she is actually feeling hungry now. Chronic abdominal pain seems close to baseline -Replace electrolytes as below -IV fluids -Clear liquid diet for now -Will hold on further oxycodone/tramadol and continue patient's chronic pain medicine regimen -Hold HCTZ which patient takes for lower extremity edema -CBC, BMP in a.m. (2) Acute hypokalemia: K: 2.6 -In ER given 2K riders, 40 meq p.o. -Further replace and Monitor BMP (3) Hypomagnesemia: Magnesium: 1.6 -In ER given magnesium total 2 g -Monitor magnesium lab in a.m. (4) Chronic constipation: History of chronic constipation. Some worsening after surgery. Reports did not have BM for 6 days. Did have BM today 11/22/2019 -Continue stool softeners -Patient recently prescribed Linzess by PCP however has not started yet (5) Chronic pain: Follows with pain management, Dr. Vaibhav Gregorio. After surgery patient was also prescribed oxycodone, tramadol to use. Was using half a tablet of Subutex while on oxycodone and tramadol per recommendations of pain management physician. Patient states started with nausea and had intermittent episodes of vomiting which were thought secondary to the oxycodone/tramadol -Will hold on further oxycodone/tramadol and continue patient's chronic pain medicine regimen of Subutex -Recent C-spine surgery, continue outpatient follow up with Dr Russell (6) Anxiety and depression: (7) Insomnia: -Continue home meds DVT Prophylaxis -SCDs Follows with Dr Saroj Rai for routine care Pt was seen and care coordinated with Dr Rome. See addendum History of Present Illness Chief Complaint: Vomiting Primary Care Provider: Saroj Rai, Pt is 64 y/o F with PMH chronic pain, depression, anxiety, insomnia presented to ER with c/o vomiting x 2 days. Pt with h/o cervical spine surgery on 11/05/[address] Russell. She is on Subutex chronically. Follows with pain management, Dr. Vaibhav Gregorio. After surgery patient was also prescribed oxycodone, tramadol to use. Patient states was using half a tablet of Subutex and she was also taking oxycodone and tramadol per recommendations of pain management physician. Patient states started with nausea and had intermittent episodes of vomiting which were thought secondary to the oxycodone/tramadol. Several days ago it was recommended patient use 1 tablet Subutex and discontinue oxycodone and tramadol which she reports she has done. Patient states yesterday with 6 episodes of vomiting and today with 9 episodes of vomiting. Reports has been unable to take her oral medications secondary to vomiting. Patient reports chronic diffuse abdominal discomfort that has been ongoing for several months. She states vomiting feels like aggravated this somewhat however not significantly. Patient with history of chronic constipation. She reports no BM for 6 days however did have bowel movement today. Her PCP prescribed Linzess however patient has not started taking it. Denies fever/chills, diaphoresis, hematemesis, melena, hematochezia, GIVENS, dizziness, syncope, vision changes, CP, SOB, orthopnea, palpitations, cough, sore throat, choking, otalgia, rhinorrhea, extremity weakness, extremity edema, rashes, urinary symptoms. Since being in ER patient received IVF and Zofran. She reports nausea is much improved and is actually feeling hungry. No further vomiting while in ER. In ER found to have hypokalemia and hypomagnesia. Pt will be admitted for further electrolyte replacement Allergies Allergy/AdvReac Type Severity Reaction Status Date / Time triamcinolone [From Kenalog] Allergy Severe neuropathy Verified 11/22/19 18:42 cephalexin Allergy Intermediate hives Verified 11/22/19 18:42 levofloxacin [From Levaquin] Allergy Intermediate Hives Verified 11/22/19 18:42 Sulfa (Sulfonamide Allergy Mild Rash Verified 11/22/19 18:42 Antibiotics) sulfamethoxazole Allergy Mild Rash Verified 11/22/19 18:42 Home Medications Home Medications Medication Instructions Recorded Confirmed Type bisacodyl 5 mg tablet 10 mg PO PM PRN tab 06/13/18 11/22/19 History docusate sodium 100 mg capsule 200 mg PO PM cap 06/13/18 11/22/19 History zolpidem 5 mg tablet 5 mg PO HS tab 06/13/18 11/22/19 History cholecalciferol (vitamin D3) 50,000 unit PO 2XWK 10/05/18 11/22/19 History cetirizine 10 mg tablet 10 mg PO QAM #30 tab 10/16/18 11/22/19 Rx aspirin 81 mg chewable tablet 81 mg PO PM #90 tab 11/08/18 11/22/19 History lidocaine 5 % topical ointment 1 applic TOPICAL UD PRN #120 gm 11/08/18 11/22/19 History venlafaxine 75 mg capsule,extended 75 mg PO HS #30 cap 04/30/19 11/22/19 History release 24 hr Probiotic Acidophilus 1,000 mmu cells PO QAM 08/31/19 11/22/19 History [id number] 500 cap PO QAM 08/31/19 11/22/19 History magnesium 400 mg PO BID 08/31/19 11/22/19 History immun glob G 10 gram/50 mL(20 8 g SUBCUT WK #200 ml 09/04/19 11/22/19 Rx %)-pro-IgA 0-50 mcg/mL subcutaneous soln buprenorphine HCl 8 mg SUBLINGUAL BID 10/31/19 11/22/19 History nystatin 5 ml PO QID PRN 11/05/19 11/22/19 History tramadol 50 mg PO Q6H PRN #20 tab 11/05/19 11/22/19 Rx epinephrine 0.3 mg IM UD PRN 11/22/19 11/22/19 History hydrochlorothiazide 25 mg PO DAILY 11/22/19 11/22/19 History linaclotide [Linzess] 72 mcg PO DAILY 11/22/19 11/22/19 History ondansetron HCl [Zofran] 4 mg PO Q8 PRN 11/22/19 11/22/19 History promethazine 25 mg PO TID PRN 11/22/19 11/22/19 History venlafaxine [Effexor XR] 150 mg PO HS 11/22/19 11/22/19 History Past Med/Surg History Medical History Anxiety and depression Cervicalgia Chronic pain Degenerative disc disease GERD (gastroesophageal reflux disease) controlled Hyperlipidemia Insomnia Kidney stones Lumbago Osteoarthritis Peripheral neuropathy Small fiber neuropathy IGA for this /[place] [facility] [place] currently weaning off Lyrica (did not have improvement in symptoms) Tachycardia + palpitations- controlled on metoprolol Thrush Surgical History H/O wisdom tooth extraction H/O: hysterectomy History of bladder surgery bladder tack History of colonoscopy History of lithotripsy S/P shoulder surgery left > rotator cuff S/P tonsillectomy and adenoidectomy Family History Father Bladder cancer Stroke Brother Coronary heart disease Mother Stroke Other Hypertension Social History Smoking Status: Never smoker Second Hand Exposure: Yes ( A CHILD); Hx Alcohol Use: No Hx Substance Use: No Preferred Language: Colombian Communication Ability: Effective Scrap Charger Required: No Beliefs That Will Affect Care: None marital status: Current Living Situation: Spouse Other Information That Helps Us Care for You: No Feels Safe at Home: Yes Safety Concerns: Feels Safe At This Time Review of Systems Review of Systems: All systems reviewed & are unremarkable except as noted in HPI & below Physical Exam Physical Exam: General: no distress, WDWN Head: normocephalic, atraumatic Eyes: PERRL, EOM's intact, conjunctiva non-injected, anicteric ENT: normal inspection external ears, nose, mucous membranes mildly dry, no oral thrush noted Neck: supple, trachea midline, C-collar in place (recent cervical spine surgery), anterior neck with steristrips in place without surrounding erythema Lungs: clear, no respiratory distress, no wheezing/rhonchi/rales CV: RRR, no murmur, no pretibial edema Abd: normal BS, soft, diffuse slight tenderness to palpation without rebound or guarding Ext: no cyanosis, no calf tenderness Neuro: A&O x 3, no focal deficits noted, normal affect Skin: warm, dry Results & Data Results & Data ([facility]) Vital Signs (Past 12 Hours) Vital Signs Temp Pulse Pulse Resp BP BP Pulse Ox 11/22/19 18:23 95 H 18 124/59 L 98 11/22/19 16:38 36.6 C 98 H 18 118/76 100 Laboratory Results Short CBC 11/22/19 Range/Units 17:18 WBC 5.33 (4.8-10.8) K/uL Hgb 12.9 (12.0-16.0) g/dL Hct 38.2 (37-47) % Plt Count 249 (130-400) K/uL BMP 11/22/19 17:18 Sodium 136 Potassium 2.6 L Chloride 92 L Carbon Dioxide 28 BUN 8 Creatinine 0.80 Glucose 95 Calcium 9.9 Liver Function 11/22/19 Range/Units 17:18 Total Bilirubin 0.6 (0.2-1) mg/dl Direct Bilirubin 0.2 (0-0.2) mg/dl AST 29 (15-37) U/L ALT 29 (12-78) U/L Alkaline Phosphatase 114 (45-117) U/L Albumin 3.8 (3.4-5.0) gm/dl Diagnostic Findings CT ABD/PELVIS: IMPRESSION: 1. No bowel wall thickening or obstruction. 2. Prior hysterectomy. 3. Mild hepatic steatosis. Code Status & VTE Plan VTE Prophylaxis Plan VTE Prophylaxis will be ordered: Yes Supervising Physician Co-Signing Physician Notes Pt was seen and examined. Agreed with Sapna ARROYO exam, assessment and plan. 64 y/o Female with PMH chronic pain, depression, anxiety, insomnia presented to ER with c/o vomiting. Pt was recently discharged for cervical spine surgery on 11/05/[address] Russell on Oxycodone and tramadol. She is on Subutex that is prescribed by pain management. Her subutex was cut by half by pain management while taking the tramadol and oxycodone. She said that she developed intermittent nausea and vomiting. She said that her vomiting worsening in the last 2 days. She said that she had a normal bowel today. CT abd/pelvis done in the ER showed no bowel wall thickening or obstruction. On admission K 2.6 and Mg 1.6. Electrolytes imbalance due to the vomiting. Will replace K and Mg. Continue IVF. Check BMP in am. Will continue monitor closely. MD Latricia
[2019-11-22 20:09] LABS: Appearance Urine Cloudy (Clear); Bacteria Urine Automated Negative (Negative); Bilirubin Urine Negative (Negative); Blood Urine Negative (Negative); Color Urine Yellow; Epithelial Cell Urine Auto >30 /lpf (0-5); Glucose Urine UA Negative (Negative); Ketones Urine 2+ (Negative); Leukocyte Esterase Urine 2+ (Negative); Nitrite Urine Negative (Negative); Protein Urine Negative (Negative); RBC Urine Automated 0-4 /hpf (0-4); Specific Gravity Urine 1.039 (1.000-1.030); Urobilinogen Urine Negative (Negative)
[2019-11-22] MEDS: POTASSIUM CHLORIDE / WTR 10 MEQ/100 ML PLCT IV SCH ×2 (20:19→22:27)
[2019-11-22] MEDS ORDERED: ACETAMINOPHEN 325 MG TAB PO PRN (20:54)
[2019-11-22] MEDS ORDERED: POLYETHYLENE (MIRALAX) 17 GM PACK PO PRN (20:54)
[2019-11-22] MEDS ORDERED: ONDANSETRON INJ 2 MG/ML 2 ML VIAL IV PRN (20:54)
[2019-11-22] MEDS ORDERED: ZOLPIDEM TARTRATE 5 MG TAB PO SCH (21:00)
[2019-11-22] MEDS ORDERED: VENLAFAXINE HCL XR 150 MG CAPXR PO SCH (21:00)
[2019-11-22] MEDS ORDERED: DOCUSATE SODIUM 100 MG CAP PO SCH (21:00)
[2019-11-22] MEDS ORDERED: VENLAFAXINE HCL XR 75 MG CAPXR PO SCH (21:00)
[2019-11-22] MEDS ORDERED: POTASSIUM CHLORIDE 40 MEQ in SODIUM CHLORIDE 0.9% 1000ML 1,000 ML IV SCH (21:45)
[2019-11-23 06:50] LABS: Hematocrit (blood only) 31.9 % (37-47); Hemoglobin 10.5 g/dL (12.0-16.0); Mean Corpuscular Hemoglobin 30.1 pg (25-34); Mean Corpuscular Hgb Conc 32.9 g/dL (32-36); Mean Corpuscular Volume 91.4 fL (80-100); Mean Platelet Volume 12.6 fL (7.4-10.4); Platelet Count 202 K/uL (130-400); RDW Coefficient of Variation 14.6 % (11.5-14.5); RDW Standard Deviation 48.1 fL (36.4-46.3); Red Blood Count 3.49 M/uL (4.2-5.4); White Blood Count 4.29 K/uL (4.8-10.8)
[2019-11-23 07:30] LABS: BUN Creatinine Ratio 6.7 (10-20); Calcium 9.1 mg/dl (8.5-10.1); Creatinine Clr Calc Pharmacy 60.3 ml/min; Est GFR (African American) 103.3; Est GFR (Non-African American) 89.1; Potassium 3.6 mmol/L (3.5-5.1)
[2019-11-23] MEDS ORDERED: buprenorphine HCL 8 MG SUBL SL SCH (09:00)
[2019-11-23 09:03] LABS: Hematocrit (blood only) 34.4 % (37-47); Hemoglobin 11.1 g/dL (12.0-16.0)
--- NOTE | 2019-11-23 12:37 | Electrocardiogram Report ---
Test Reason : Blood Pressure : / mmHG Vent. Rate : 086 BPM Atrial Rate : 086 BPM P-R Int : 136 ms QRS Dur : 072 ms QT Int : 392 ms P-R-T Axes : 075 025 026 degrees QTc Int : 469 ms Poor data quality, interpretation may be adversely affected Normal sinus rhythm Possible Left atrial enlargement Nonspecific T wave abnormality Abnormal ECG When compared with ECG of 05-NOV-2019 08:14, Nonspecific T wave abnormality has replaced inverted T waves in Lateral leads Confirmed by Jorge Julien ([id number]) on 11/23/2019 12:37:06 PM Referred By: Saorj Rai Confirmed By:Awais Julien
--- NOTE | 2019-11-23 13:24 | Hospitalist Progress Note ---
Date of Service November 23, 2019 Assessment & Plan (1) Intractable nausea and vomiting: Pt is 64 y/o F with PMH chronic pain, depression, anxiety, insomnia, chronic constipation presented to ER with c/o vomiting x 2 days. Recent cervical spine surgery on 11/05/[address] Russell. She is on Subutex chronically and was also taking oxycodone and tramadol. Had intermittent N/V thought secondary to oxycodone and tramadol and increased vomiting yesterday. Chronic abdominal pain. Chronic constipation. In ER pt afebrile, P: 98, R: 18, BP: 118/76, 100% RA. No leukocytosis, K: 2.6, magnesium: 1.6, normal LFTs, normal lipase CT abdomen pelvis: No bowel wall thickening or obstruction. Mild hepatic steatosis. Vomiting may be secondary to med side effect In ER patient given 1L NSS, Zofran IV. Patient reports much improvement of nausea. No further vomiting. She reports she is actually feeling hungry now. Chronic abdominal pain seems close to baseline -Replace electrolytes as below -IV fluids -Clear liquid diet for now -Will hold on further oxycodone/tramadol and continue patient's chronic pain medicine regimen -Hold HCTZ which patient takes for lower extremity edema -Clinically patient is now much better, she denies any nausea and she is tolerating diet, electrolytes normalized, patient is inquiring about going home (2) Acute hypokalemia: K: 2.6 on admission -In ER given 2K riders, 40 meq p.o. -Now normalized (3) Hypomagnesemia: Magnesium: 1.6 -In ER given magnesium total 2 g -Now normalized (4) Chronic constipation: History of chronic constipation. Some worsening after surgery. Reports did not have BM for 6 days. Did have BM yesterday 11/22/2019 -Continue stool softeners -Patient recently prescribed Linzess by PCP however has not started yet (5) Chronic pain: Follows with pain management, Dr. Vaibhav Gregorio. After surgery patient was also prescribed oxycodone, tramadol to use. Was using half a tablet of Subutex while on oxycodone and tramadol per recommendations of pain management physician. Patient states started with nausea and had intermittent episodes of vomiting which were thought secondary to the oxycodone/tramadol -Will hold on further oxycodone/tramadol and continue patient's chronic pain medicine regimen of Subutex -Recent C-spine surgery, continue outpatient follow up with Dr Russell (6) Anxiety and depression: (7) Insomnia: -Continue home meds DVT Prophylaxis -SCDs Follows with Dr Saroj Rai for routine care Disposition: Discharge home, follow-up with PCP, pain management and postop with Dr. Russell Admission and Anticipated Discharge Date Admission Date: November 22, 2019 Subjective Patient is sitting up in bed, tolerated liquid diet yesterday and also advanced diet today. She feels well, and she is inquiring about going home. Denies any more nausea. Electrolytes this morning in normal limits. She otherwise denies any fevers, chills, chest pain, shortness of breath, abdominal pain. Review of Systems Review of Systems: All systems reviewed & are unremarkable except as noted in HPI & below Constitutional: no fever and no chills Respiratory: no cough and no dyspnea Cardiovascular: no chest pain and no palpitations Gastrointestinal: no abdominal pain, no nausea and no vomiting Physical Exam Physical Exam: General: Sitting up in bed, eating, in no distress, WDWN Head: normocephalic, atraumatic Eyes: PERRL, EOM's intact, conjunctiva non-injected, anicteric ENT: normal inspection external ears, nose, mucous membranes mildly dry, no oral thrush noted Neck: supple, trachea midline, C-collar in place (recent cervical spine surgery), anterior neck with steristrips in place without surrounding erythema Lungs: clear, no respiratory distress, no wheezing/rhonchi/rales CV: RRR, no murmur, no pretibial edema Abd: normal BS, soft, diffuse slight tenderness to palpation without rebound or guarding Ext: no cyanosis, no calf tenderness Neuro: A&O x 3, no focal deficits noted, normal affect Skin: warm, dry Results & Data Results & Data ([facility]) Vital Signs (Past 12 Hours) Vital Signs Temp Pulse Pulse Resp BP Pulse Ox 11/23/19 11:32 36.7 C 85 16 102/60 97 11/23/19 07:09 103 H 11/23/19 06:55 37 C 101 H 18 96/55 L 97 11/23/19 03:53 36.5 C 97 H 18 94/60 L 97 Laboratory Results 11/23/19 11/23/19 11/23/19 Range/Units 08:49 06:18 06:18 WBC 4.29 L (4.8-10.8) K/uL RBC 3.49 L (4.2-5.4) M/uL Hgb 11.1 L 10.5 L (12.0-16.0) g/dL Hct 34.4 L 31.9 L (37-47) % MCV 91.4 (80-100) fL MCH 30.1 (25-34) pg MCHC 32.9 (32-36) g/dL RDW Std Deviation 48.1 H (36.4-46.3) fL RDW Coeff of Kristian 14.6 H (11.5-14.5) % Plt Count 202 (130-400) K/uL MPV 12.6 H (7.4-10.4) fL Immature Gran % (Auto) % Neut % (Auto) % Lymph % (Auto) % [place] % (Auto) % Eos % (Auto) % Baso % (Auto) % Neut # (Auto) (1.4-6.5) K/uL Lymph # (Auto) (1.2-3.4) K/uL [place] # (Auto) (0.11-0.59) K/uL Eos # (Auto) (0-0.5) K/uL Baso # (Auto) (0-0.2) K/uL Immature Gran # (Auto) (0.00-0.02) K/uL Sodium 143 D (136-145) mmol/L Potassium 3.6 D (3.5-5.1) mmol/L Chloride 108 H (98-107) mmol/L Carbon Dioxide 27 (21-32) mmol/L Anion Gap 9.0 (3-11) BUN 5 L (7-18) mg/dl Creatinine 0.72 (0.6-1.2) mg/dl Est Cr Clr Drug Dosing 60.3 Est GFR ( Amer) 103.3 Est GFR (Non-Af Amer) 89.1 BUN/Creatinine Ratio 6.7 L (10-20) Glucose 74 (70-99) mg/dl Calcium 9.1 (8.5-10.1) mg/dl Magnesium 2.0 (1.8-2.4) mg/dl Total Bilirubin (0.2-1) mg/dl Direct Bilirubin (0-0.2) mg/dl AST (15-37) U/L ALT (12-78) U/L Alkaline Phosphatase (45-117) U/L Total Protein (6.4-8.2) gm/dl Albumin (3.4-5.0) gm/dl Lipase (73-393) U/L Urine Color Urine Appearance (Clear) Urine pH (4.5-7.5) Ur Specific [place] (1.000-1.030) Urine Protein (Negative) Urine Glucose (UA) (Negative) Urine Ketones (Negative) Urine Blood (Negative) Urine Nitrite (Negative) Urine Bilirubin (Negative) Urine Urobilinogen (Negative) Ur Leukocyte Esterase (Negative) Urine WBC (Auto) (0-5) /hpf Urine RBC (Auto) (0-4) /hpf U Hyaline Cast (Auto) (0-5) /lpf U Epithel Cells (Auto) (0-5) /lpf Urine Bacteria (Auto) (Negative) 11/22/19 11/22/19 11/22/19 Range/Units 19:50 17:18 17:18 WBC 5.33 (4.8-10.8) K/uL RBC 4.19 L (4.2-5.4) M/uL Hgb 12.9 (12.0-16.0) g/dL Hct 38.2 (37-47) % MCV 91.2 (80-100) fL MCH 30.8 (25-34) pg MCHC 33.8 (32-36) g/dL RDW Std Deviation 47.1 H (36.4-46.3) fL RDW Coeff of Kristian 14.3 (11.5-14.5) % Plt Count 249 (130-400) K/uL MPV 13.2 H (7.4-10.4) fL Immature Gran % (Auto) 0.0 % Neut % (Auto) 76.4 % Lymph % (Auto) 18.9 % [place] % (Auto) 4.3 % Eos % (Auto) 0.2 % Baso % (Auto) 0.2 % Neut # (Auto) 4.07 (1.4-6.5) K/uL Lymph # (Auto) 1.01 L (1.2-3.4) K/uL [place] # (Auto) 0.23 (0.11-0.59) K/uL Eos # (Auto) 0.01 (0-0.5) K/uL Baso # (Auto) 0.01 (0-0.2) K/uL Immature Gran # (Auto) 0.00 (0.00-0.02) K/uL Sodium 136 (136-145) mmol/L Potassium 2.6 L (3.5-5.1) mmol/L Chloride 92 L (98-107) mmol/L Carbon Dioxide 28 (21-32) mmol/L Anion Gap 16.0 H (3-11) BUN 8 (7-18) mg/dl Creatinine 0.80 (0.6-1.2) mg/dl Est Cr Clr Drug Dosing Not Reportable Est GFR ( Amer) 90.9 Est GFR (Non-Af Amer) 78.5 BUN/Creatinine Ratio 10.2 (10-20) Glucose 95 (70-99) mg/dl Calcium 9.9 (8.5-10.1) mg/dl Magnesium 1.6 L (1.8-2.4) mg/dl Total Bilirubin 0.6 (0.2-1) mg/dl Direct Bilirubin 0.2 (0-0.2) mg/dl AST 29 (15-37) U/L ALT 29 (12-78) U/L Alkaline Phosphatase 114 (45-117) U/L Total Protein 8.2 (6.4-8.2) gm/dl Albumin 3.8 (3.4-5.0) gm/dl Lipase 86 (73-393) U/L Urine Color Yellow Urine Appearance Cloudy A (Clear) Urine pH 6.0 (4.5-7.5) Ur Specific [place] 1.039 H (1.000-1.030) Urine Protein Negative (Negative) Urine Glucose (UA) Negative (Negative) Urine Ketones 2+ H (Negative) Urine Blood Negative (Negative) Urine Nitrite Negative (Negative) Urine Bilirubin Negative (Negative) Urine Urobilinogen Negative (Negative) Ur Leukocyte Esterase 2+ H (Negative) Urine WBC (Auto) 10-30 H (0-5) /hpf Urine RBC (Auto) 0-4 (0-4) /hpf U Hyaline Cast (Auto) 1-5 (0-5) /lpf U Epithel Cells (Auto) >30 H (0-5) /lpf Urine Bacteria (Auto) Negative (Negative) Medications Administered Current Inpatient Medications Acetaminophen (Acetaminophen 325 Mg Tab) 650 mg PO Q4H PRN PRN Reason: Pain or Fever Stop: 12/22/19 20:53 Last Admin: 11/23/19 07:57 Dose: 650 mg Documented by: Buprenorphine HCl (Buprenorphine Hcl 8 Mg Subl) 8 mg SL BID MALGORZATA Stop: 12/23/19 08:59 Last Admin: 11/23/19 08:29 Dose: 8 mg Documented by: Docusate Sodium (Docusate Sodium 100 Mg Cap) 200 mg PO PM MALGORZATA Stop: 12/22/19 20:59 Last Admin: 11/22/19 22:24 Dose: Not Given Documented by: Ondansetron HCl (Ondansetron Inj 2 Mg/Ml 2 Ml Vial) 4 mg IV Q6H PRN PRN Reason: Nausea Stop: 12/22/19 20:53 Polyethylene Glycol (Polyethylene (Miralax) 17 Gm Pack) 17 gm PO DAILY PRN PRN Reason: Constipation Stop: 12/22/19 20:53 Venlafaxine HCl (Venlafaxine Hcl Xr 75 Mg Capxr) 75 mg PO HS MALGORZATA Stop: 12/22/19 20:59 Last Admin: 11/22/19 22:24 Dose: 75 mg Documented by: Venlafaxine HCl (Venlafaxine Hcl Xr 150 Mg Capxr) 150 mg PO HS MALGORZATA Stop: 12/22/19 20:59 Last Admin: 11/22/19 22:24 Dose: 150 mg Documented by: Zolpidem Tartrate (Zolpidem Tartrate 5 Mg Tab) 5 mg PO HS MALGORZATA Stop: 12/22/19 20:59 Last Admin: 11/22/19 22:25 Dose: 5 mg Documented by:
--- NOTE | 2019-11-23 13:39 | Discharge Summary ---
Date of Service November 23, 2019 Admission HPI Per Admitting Provider Pt is 64 y/o F with PMH chronic pain, depression, anxiety, insomnia presented to ER with c/o vomiting x 2 days. Pt with h/o cervical spine surgery on 11/05/[address] Russell. She is on Subutex chronically. Follows with pain management, Dr. Vaibhav Gregorio. After surgery patient was also prescribed oxycodone, tramadol to use. Patient states was using half a tablet of Subutex and she was also taking oxycodone and tramadol per recommendations of pain management physician. Patient states started with nausea and had intermittent episodes of vomiting which were thought secondary to the oxycodone/tramadol. Several days ago it was recommended patient use 1 tablet Subutex and discontinue oxycodone and tramadol which she reports she has done. Patient states yesterday with 6 episodes of vomiting and today with 9 episodes of vomiting. Reports has been unable to take her oral medications secondary to vomiting. Patient reports chronic diffuse abdominal discomfort that has been ongoing for several months. She states vomiting feels like aggravated this somewhat however not significantly. Patient with history of chronic constipation. She reports no BM for 6 days however did have bowel movement today. Her PCP prescribed Linzess however patient has not started taking it. Denies fever/chills, diaphoresis, hematemesis, melena, hematochezia, GIVENS, dizziness, syncope, vision changes, CP, SOB, orthopnea, palpi tations, cough, sore throat, choking, otalgia, rhinorrhea, extremity weakness, extremity edema, rashes, urinary symptoms. Since being in ER patient received IVF and Zofran. She reports nausea is much improved and is actually feeling hungry. No further vomiting while in ER. In ER found to have hypokalemia and hypomagnesia. Pt will be admitted for further electrolyte replacement Admission Exam Per Admitting Provider General: no distress, WDWN Head: normocephalic, atraumatic Eyes: PERRL, EOM's intact, conjunctiva non-injected, anicteric ENT: normal inspection external ears, nose, mucous membranes mildly dry, no oral thrush noted Neck: supple, trachea midline, C-collar in place (recent cervical spine surgery), anterior neck with steristrips in place without surrounding erythema Lungs: clear, no respiratory distress, no wheezing/rhonchi/rales CV: RRR, no murmur, no pretibial edema Abd: normal BS, soft, diffuse slight tenderness to palpation without rebound or guarding Ext: no cyanosis, no calf tenderness Neuro: A&O x 3, no focal deficits noted, normal affect Skin: warm, dry Principal Diagnosis Vomiting, electrolyte abnormalities /hypokalemia, hypomagnesemia Discharge Exam General: Sitting up in bed, eating, in no distress, WDWN Head: normocephalic, atraumatic Eyes: PERRL, EOM's intact, conjunctiva non-injected, anicteric ENT: normal inspection external ears, nose, mucous membranes mildly dry, no oral thrush noted Neck: supple, trachea midline, C-collar in place (recent cervical spine surgery), anterior neck with steristrips in place without surrounding erythema Lungs: clear, no respiratory distress, no wheezing/rhonchi/rales CV: RRR, no murmur, no pretibial edema Abd: normal BS, soft, diffuse slight tenderness to palpation without rebound or guarding Ext: no cyanosis, no calf tenderness Neuro: A&O x 3, no focal deficits noted, normal affect Skin: warm, dry Discharge Data Allergies Allergy/AdvReac Type Severity Reaction Status Date / Time triamcinolone [From Kenalog] Allergy Severe neuropathy Verified 11/22/19 18:42 cephalexin Allergy Intermediate hives Verified 11/22/19 18:42 levofloxacin [From Levaquin] Allergy Intermediate Hives Verified 11/22/19 18:42 Sulfa (Sulfonamide Allergy Mild Rash Verified 11/22/19 18:42 Antibiotics) sulfamethoxazole Allergy Mild Rash Verified 11/22/19 18:42 Consultations 11/22/19 18:57 ED Decision to Admit Stat Ordered Studies 11/22/19 16:54 CT abd pelvis IV con only Stat IMPRESSION: 1. No bowel wall thickening or obstruction. 2. Prior hysterectomy. 3. Mild hepatic steatosis. Hospital Course (1) Intractable nausea and vomiting: Pt is 64 y/o F with PMH chronic pain, depression, anxiety, insomnia, chronic constipation presented to ER with c/o vomiting x 2 days. Recent cervical spine surgery on 11/05/[address] Russell. She is on Subutex chronically and was also taking oxycodone and tramadol. Had intermittent N/V thought secondary to oxycodone and tramadol and increased vomiting yesterday. Chronic abdominal pain. Chronic constipation. In ER pt afebrile, P: 98, R: 18, BP: 118/76, 100% RA. No leukocytosis, K: 2.6, magnesium: 1.6, normal LFTs, normal lipase CT abdomen pelvis: No bowel wall thickening or obstruction. Mild hepatic steatosis. Vomiting may be secondary to med side effect In ER patient given 1L NSS, Zofran IV. Patient reports much improvement of nausea. No further vomiting. She reports she is actually feeling hungry now. Chronic abdominal pain seems close to baseline -Replace electrolytes as below -IV fluids -Clear liquid diet for now -Will hold on further oxycodone/tramadol and continue patient's chronic pain medicine regimen -Hold HCTZ which patient takes for lower extremity edema -Clinically patient is now much better, she denies any nausea and she is tolerating diet, electrolytes normalized, patient is inquiring about going home (2) Acute hypokalemia: K: 2.6 on admission -In ER given 2K riders, 40 meq p.o. -Now normalized (3) Hypomagnesemia: Magnesium: 1.6 -In ER given magnesium total 2 g -Now normalized (4) Chronic constipation: History of chronic constipation. Some worsening after surgery. Reports did not have BM for 6 days. Did have BM yesterday 11/22/2019 -Continue stool softeners -Patient recently prescribed Linzess by PCP however has not started yet (5) Chronic pain: Follows with pain management, Dr. Vaibhav Gregorio. After surgery patient was also prescribed oxycodone, tramadol to use. Was using half a tablet of Subutex while on oxycodone and tramadol per recommendations of pain management physician. Patient states started with nausea and had intermittent episodes of vomiting which were thought secondary to the oxycodone/tramadol -Will hold on further oxycodone/tramadol and continue patient's chronic pain medicine regimen of Subutex -Recent C-spine surgery, continue outpatient follow up with Dr Russell (6) Anxiety and depression: (7) Insomnia: -Continue home meds DVT Prophylaxis -SCDs PCP: Dr Saroj Rai for routine care Disposition: Discharge home, follow-up with PCP, pain management, and postop with Dr. Russell Total Time Total Time Spent Total Time Spent (In Minutes): 40 Total Time Includes: Examination of the Patient, Discharge Planning and Medication Reconciliation Discharge Plan Discharge Items Patient Disposition: Home - Self-Care Reason For Visit: VOMITING, HYPOKALEMIA Discharge Diagnosis: Vomiting, electrolyte abnormalities /hypokalemia, hypomagnesemia Activity: Per Instructions section Non-emergency contact: Primary Care Provider and Surgeon Call non-emergency contact if: you have any medication questions Follow-up/Referrals: Saroj Rai, [Primary Care Provider] - Diet: Regular Diet Texture: Pureed (blended smooth) Addtl Attending Provider Instructions: Follow-up with your primary care doctor, your pain management doctor and as already scheduled, postop follow up with Dr. Russell. Recommend soft bland diet, avoid any spicy or irritating foods. For constipation, recommend [id number] stool softeners. Resume your previous pain medications, stop oxycodone and tramadol. Discuss with your pain management doctor further pain management. Also recommend to not take hydrochlorothiazide until Tuesday. Pending Studies at Discharge: No Stand-Alone Forms: My [facility] [place], Smoking Cessation Medications and DC Order Prescriptions: New acetaminophen 325 mg Tablet 650 mg PO Q4H PRN (Reason: pain) 10 Days RF: 0 polyethylene glycol 3350 [Miralax] 17 gram Powder In Packet 17 g PO DAILY PRN (Reason: constipation) Qty: 14 RF: 0 Continued zolpidem [Ambien] 5 mg tablet 5 mg PO HS RF: 0 docusate sodium [Colace] 100 mg capsule 200 mg PO PM RF: 0 Correctol 5 mg tablet 10 mg PO PM PRN (Reason: Constipation) RF: 0 cetirizine [Zyrtec] 10 mg tablet 10 mg PO QAM Qty: 30 RF: 3 Hizentra 10 gram/50 mL (20 %) solution 8 g subcut WK Qty: 200 RF: 11 aspirin 81 mg tablet,chewable 81 mg PO PM Qty: 90 RF: 0 lidocaine 5 % ointment 1 applic topical UD PRN (Reason: pain) Qty: 120 RF: 0 venlafaxine 75 mg capsule,extended release 24hr 75 mg PO HS Qty: 30 RF: 0 magnesium 200 mg Tablet 400 mg PO BID RF: 0 [id number] 500 mg Capsule 500 cap PO QAM RF: 0 Probiotic Acidophilus 1.5 mg (250 million cell) Capsule 1,000 mmu cells PO QAM RF: 0 buprenorphine HCl 8 mg Tablet, Sublingual 8 mg SUBLINGUAL BID RF: 0 nystatin 100,000 unit/mL suspension 5 ml PO QID PRN (Reason: thrush) RF: 0 cholecalciferol (vitamin D3) 50,000 unit Capsule 50,000 unit PO 2XWK RF: 0 venlafaxine [Effexor XR] 150 mg capsule,extended release 24hr 150 mg PO HS RF: 0 hydrochlorothiazide 25 mg tablet 25 mg PO DAILY RF: 0 epinephrine 0.3 mg/0.3 mL auto-injector 0.3 mg IM UD PRN (Reason: anaphylaxis) RF: 0 ondansetron HCl [Zofran] 4 mg tablet 4 mg PO Q8 PRN (Reason: Nausea) RF: 0 promethazine 25 mg tablet 25 mg PO TID PRN (Reason: Nausea) RF: 0 Linzess 72 mcg capsule 72 mcg PO DAILY RF: 0 Discontinued tramadol 50 mg tablet 50 mg PO Q6H PRN (Reason: pain, moderate) Qty: 20 RF: 0 Discharge Orders: Discharge Order (Routine); Ordered 11/23/19 Ordered By: Luke Oneil Admission Data Admit Date/Time: 11/22/19 19:40 Attending Provider: Luke Oneil Admit Provider: Brian Rome Primary Care Provider: Saroj Rai Other Providers: Brian Rome Other Interventions: Discharge Summary Assessment (RN) Last Done: 11/23/19 13:34
== END 2019-11-23 14:03 | disposition home or self-care (01) ==
LOC: 2W 16:31 → ED 16:31 → SUATTDRO 19:40 → 2W 20:35